=== PATIENT | male | born 1950 | race Caucasian/White ===

== ENCOUNTER → 2016-10-16 | Outpatient (CLI) | payer OTHER ==
--- NOTE | 2016-10-16 10:03 | DIAGNOSTIC IMAGING REPORT ---
ULTRASOUND ABDOMINAL WALL CLINICAL HISTORY: Palpable abnormality. COMPARISON STUDY: Ultrasound of the abdominal wall dated 01/23/2015. FINDINGS: Real-time grayscale sonography of the abdominal wall is performed at the indicated sites of interest. In the right abdomen there is no abnormality identified at site specified. [place] appearing subcutaneous fat is noted. There is focal bulging in the abdominal midline with stress, likely representing diastases of the rectus musculature. No hernia is seen. IMPRESSION: 1. No abdominal wall hernia is identified. 2. There is focal bulging in the abdominal midline, likely representing diastases of the rectus musculature. 3. No mass lesion or abnormality is identified in the right abdomen at the site of interest. Electronically signed by: David Otero M.D. 10/16/2016 10:02 AM Dictated Date/Time: 10/16/2016 9:58 AM
== END | disposition home or self-care (01) ==
LOC: C.ULTR 08:50
PROVIDERS: ATTEND Family Medicine
DX: R19.00 Intra-abdominal and pelvic swelling, mass and lump, unspecified site (principal)

== ENCOUNTER 2022-01-22 11:14 | Observation (INO) ==
[2022-01-22 12:00] LABS: Basophils # (auto) 0.06 K/uL (0-0.2); Eosinophils # (auto) 0.17 K/uL (0-0.50); Eosinophils % (auto) 2.9 %; Hematocrit (blood only) 42.1 % (40.1-51.0); Hemoglobin 14.8 g/dl (14.0-18.0); Immature Granulocytes # (auto) 0.01 K/uL (0.00-0.02); Immature Granulocytes % (auto) 0.2 %; Lymphocytes # (auto) 2.28 K/uL (1.2-3.4); Lymphocytes % (auto) 38.8 %; Mean Corpuscular Hemoglobin 31.7 pg (25.0-34.0); Mean Corpuscular Hgb Conc 35.2 g/dL (32.0-36.0); Mean Corpuscular Volume 90.1 fL (80.0-100.0); Monocytes # (auto) 0.47 K/uL (0.24-0.82); Neutrophils # (auto) 2.89 K/uL (1.4-6.5); Neutrophils % (auto) 49.1 %; Platelet Count 185 K/uL (130-400); RDW Coefficient of Variation 12.5 % (11.5-14.5); RDW Standard Deviation 41.2 fL (36.4-46.3); Red Blood Count 4.67 M/uL (4.63-6.08); White Blood Count 5.88 K/ul (4.8-10.8)
--- NOTE | 2022-01-22 12:02 | Emergency Department Note ---
Impression & Plan TIA (transient ischemic attack), Stenosis of right carotid artery, AF (amaurosis fugax) ED Provider Note NAME: FELECIA VILLARREAL III AGE: 71 SEX: M : 1950 ARRIVES VIA: Walk-In INFORMANT: Patient, ED PROVIDER(S): Sean Payton DO CHIEF COMPLAINT: Visual problems HPI: The patient is a 71-year-old male who presented to the emergency department because of decreased vision in his right eye. The patient states he has been having some chest discomfort and palpitations over the course the last few weeks. He was seen in our facility and had a complete work-up including an echocardiogram. He also had an out patient monitor which showed a significant amount of ectopy. He was started on a beta-simeon. The symptoms have slowly been improving although he still complains of some chest discomfort especially today. He denies having any trauma. He denies having any difficulty breathing. He states that he started noticing decreased vision in his right eye this morning. He states he has had ongoing symptoms of chest discomfort but the visual difficulty only lasted about 30 minutes and was more like a grayness over his entire right vision. He was seen at his eye doctors but no cause could be found peripherally for his visual difficulty. For this reason he was sent to the emergency department for a possible FORMULA CHECKER cause to his findings. The patient himself denies having any history of TIA or stroke. He has no history of heart attack. He denies having any back pain or lower extremity pain or swelling at this time. He states the visual difficulty is completely resolved. ROS: See above HPI for pertinent positives & negatives. A total of 10 systems reviewed and were otherwise negative. PAST MEDICAL HISTORY: See Below PAST SURGICAL HISTORY: See Below FAMILY HISTORY: See Below SOCIAL HISTORY: See Below HOME MEDICATIONS: See Below ALLERGIES: See Below VITALS: See Below PHYSICAL EXAMINATION: GENERAL: Patient is awake alert in no acute distress patient is resting comfor tably and showing no signs of anxiety EYES: The conjunctivae are clear. The right pupil was dilated and minimally reactive consistent with the patient's recent trip to the central sched[place]. Left pupil is midsize and reactive. Extraocular muscles are intact. EARS, NOSE, MOUTH AND THROAT: The nose is without any evidence of any deformity. NECK: The neck is nontender and supple. RESPIRATORY: Normal respiratory effort is noted there is no evidence of wheezing rhonchi or rales CARDIOVASCULAR: Regular rate and rhythm noted there no murmurs rubs or gallops normal S1 normal S2. GASTROINTESTINAL: The abdomen is soft. Abdomen is nontender. MUSCULOSKELETAL/EXTREMITIES: There is no evidence of gross deformity full range of motion is noted in the hips and shoulders. SKIN: There is no obvious evidence of any rash. There are no petechiae, pallor or cyanosis noted. NEUROLOGIC: Patient is awake alert and oriented x3 strength is symmetric patellar reflexes are 2+ bilaterally MEDICAL DECISION MAKING: The patient is a 71-year-old male who presented to the emergency department with neurologic symptoms. The patient had a transient loss of vision in his right eye. He was seen by ophthalmology. No definite cause for his transient loss of vision was noted on their exam. The patient was sent to the emergency department for further neurologic work-up. He had no focal neurologic deficits on my evaluation and his vision he states was significantly improved. I discussed the patient's laboratory and radiographic studies with him. He was found to have a lesion in his right carotid artery which could be the cause of the patient's transient loss of vision. Given the likelihood of possible further TIA or possible stroke I discussed his case with the on-call [facility] hospitalist. They have agreed to evaluate the patient in the emergency department for further management and disposition. Triage Nursing notes reviewed. Prior medical records reviewed Vital Signs: reviewed and remarkable for elevated blood pressure. Differential diagnosis: Cardiac ischemia, aortic dissection, pulmonary embolism, pneumothorax, pneumonia, pericarditis, myocarditis, esophageal rupture, GERD, cholecystitis, pancreatitis, musculoskeletal, as well as other pathologies. ER treatment provided: See below Diagnostics interpreted by me: ECG: EKG was obtained in the emergency department. My interpretation is normal sinus rhythm at 73 bpm. There was no ectopy. Lateral T wave inversions were noted. This was compared to a tracing from October 01, 2018. The T wave abnormalities are significantly improved compared to the earlier tracing. Cardiac Monitoring: An order was placed for continuous cardiac monitoring. The monitor shows a rate of 67 bpm with sinus rhythm. Laboratory studies: As stated above and show below. Imaging studies: See below Consultation(s): I discussed this case with Dr. Do. Past Med/Surg History Medical History Abnormal resting ECG findings Diffuse T wave inversion. Prompted cardiac workup in 2007 -- cath showed normal coronary arteries. GERD (gastroesophageal reflux disease) Hypertension Osteoarthritis Surgical History History of cardiac cath 8 YRS AGO History of colonoscopy History of dental surgery Post insertion History of total shoulder replacement Hx of arthroscopy of right knee Family History Father Pancreatic cancer Social History Smoking Status: Never smoker Second Hand Exposure: No; Hx Alcohol Use: No Hx Substance Use: No Preferred Language: Portuguese Communication Ability: Effective Rate Clerk Required: No Beliefs That Will Affect Care: None Current Living Situation: Spouse Current Living Situation Comment: home with Other Information That Helps Us Care for You: No Feels Safe at Home: Yes Safety Concerns: Feels Safe At This Time Assistive Devices: Glasses Allergies Allergies Allergy/AdvReac Type Severity Reaction Status Date / Time acetaminophen [From Tylenol] Allergy Intermediate Hives Verified 01/22/22 14:19 Home Meds Home Medications Medication Instructions Recorded Confirmed aspirin 81 mg tablet,delayed 81 mg PO DAILY 09/30/18 01/22/22 release (Aspir-) esomeprazole magnesium 20 mg 20 mg PO DAILY 09/30/18 01/22/22 capsule,delayed release (Nexium) hydrocortisone 1 % topical cream 1 applic topical BID PRN Pain 09/30/18 01/22/22 ibuprofen 200 mg capsule (Motrin 400 mg PO Q6H PRN Pain 09/30/18 01/22/22 IB) lisinopril 20 mg tablet 20 mg PO DAILY 09/30/18 01/22/22 metoprolol succinate 50 mg 50 mg PO DAILY 01/22/22 01/22/22 tablet,extended release 24 hr Results & Data (ED) Vital Signs Vital Signs - 24 hr 01/22/22 11:15 01/22/22 11:37 01/22/22 11:37 Temperature 36.4 C L Temperature Source Temporal Artery Scan Pulse Rate 64 Pulse Rate [Apical] 63 Pulse Rhythm Regular Pulse Rhythm [Apical] Regular Pulse Strength Normal Pulse Strength [Apical] Normal Respiratory Rate 20 20 Respiratory Effort / Characteristics Non-Labored Spontaneous Non-Labored Respiratory Depth Normal Normal Respiratory Pattern Regular Regular Blood Pressure 156/87 H Blood Pressure [Right Arm] 144/83 H Blood Pressure Mean 110 Blood Pressure Mean [Right Arm] 103 Blood Pressure Position Sitting Blood Pressure Position [Right Arm] Lying Pulse Oximetry 97 95 Oxygen Delivery Method Room Air Room Air Room Air Sepsis Recent Fever Within 48 Hours No Sepsis New/Unexplained Change in Mental Status N/A Sepsis Action Taken by Nursing No Action Required 01/22/22 12:05 Temperature Temperature Source Pulse Rate Pulse Rate [Apical] 60 Pulse Rhythm Pulse Rhythm [Apical] Regular Pulse Strength Pulse Strength [Apical] Normal Respiratory Rate 20 Respiratory Effort / Characteristics Non-Labored Respiratory Depth Normal Respiratory Pattern Regular Blood Pressure Blood Pressure [Right Arm] Blood Pressure Mean Blood Pressure Mean [Right Arm] Blood Pressure Position Blood Pressure Position [Right Arm] Pulse Oximetry 94 Oxygen Delivery Method Room Air Sepsis Recent Fever Within 48 Hours Sepsis New/Unexplained Change in Mental Status Sepsis Action Taken by [facility] Medications Current Medication List: was personally reviewed by me Laboratory Data Attestation: I reviewed the patient's lab results. Result diagrams: 01/23/22 07:15 01/23/22 07:15 Lab Results 01/22/22 01/22/22 01/22/22 Range/Units 11:25 11:25 11:25 WBC 5.88 (4.8-10.8) K/ul RBC 4.67 (4.63-6.08) M/uL Hgb 14.8 (14.0-18.0) g/dl Hct 42.1 (40.1-51.0) % MCV 90.1 (80.0-100.0) fL MCH 31.7 (25.0-34.0) pg MCHC 35.2 (32.0-36.0) g/dL RDW Std Deviation 41.2 (36.4-46.3) fL RDW Coeff of Sravani 12.5 (11.5-14.5) % Plt Count 185 (130-400) K/uL MPV 9.0 L (9.4-12.4) fL Immature Gran % (Auto) 0.2 % Neut % (Auto) 49.1 % Lymph % (Auto) 38.8 % [place] % (Auto) 8.0 % Eos % (Auto) 2.9 % Baso % (Auto) 1.0 % Neut # (Auto) 2.89 (1.4-6.5) K/uL Lymph # (Auto) 2.28 (1.2-3.4) K/uL [place] # (Auto) 0.47 (0.24-0.82) K/uL Eos # (Auto) 0.17 (0-0.50) K/uL Baso # (Auto) 0.06 (0-0.2) K/uL Immature Gran # (Auto) 0.01 (0.00-0.02) K/uL PT 10.9 (9.0-12.0) Seconds INR 1.0 (0.9-1.1) APTT 25.7 (21.0-31.0) Seconds PTT Ratio 0.9 Sodium 137 (136-145) mmol/L Potassium 4.5 (3.5-5.1) mmol/L Chloride 104 (98-107) mmol/L Carbon Dioxide 29 (21-32) mmol/L Anion Gap 4 (3-11) BUN 19 (6-23) mg/dl Creatinine 1.05 (0.6-1.4) mg/dl Est Cr Clr Drug Dosing 86.9 ml/min Est GFR ( Amer) 82.4 ml/min Est GFR (Non-Af Amer) 71.1 ml/min BUN/Creatinine Ratio 18.1 (10-20) Glucose 112 H (70-99(Fasting)) mg/dl Calcium 9.5 (8.5-10.1) mg/dl Magnesium 2.0 (1.7-2.4) mg/dl Total Bilirubin 0.5 (0.2-1.0) mg/dl AST 17 (13-39) U/L ALT 23 (7-52) U/L Alkaline Phosphatase 100 (34-104) U/L Troponin I High Sens 7.1 (0-20) pg/ml Total Protein 7.1 (6.0-8.3) gm/dl Albumin 4.1 (3.4-5.0) gm/dl Globulin 3.0 (2.5-4.0) gm/dl Albumin/Globulin Ratio 1.4 (0.9-2) Urine Color Urine Appearance (Clear) Urine pH (4.5-7.5) Ur Specific [place] (1.000-1.030) Urine Protein (Negative) Urine Glucose (UA) (Negative) Urine Ketones (Negative) Urine Blood (Negative) Urine Nitrite (Negative) Urine Bilirubin (Negative) Urine Urobilinogen (Negative) Ur Leukocyte Esterase (Negative) SARS-CoV-2, RNA, NAAT (NEGATIVE) 01/22/22 01/22/22 Range/Units 12:18 12:35 WBC (4.8-10.8) K/ul RBC (4.63-6.08) M/uL Hgb (14.0-18.0) g/dl Hct (40.1-51.0) % MCV (80.0-100.0) fL MCH (25.0-34.0) pg MCHC (32.0-36.0) g/dL RDW Std Deviation (36.4-46.3) fL RDW Coeff of Sravani (11.5-14.5) % Plt Count (130-400) K/uL MPV (9.4-12.4) fL Immature Gran % (Auto) % Neut % (Auto) % Lymph % (Auto) % [place] % (Auto) % Eos % (Auto) % Baso % (Auto) % Neut # (Auto) (1.4-6.5) K/uL Lymph # (Auto) (1.2-3.4) K/uL [place] # (Auto) (0.24-0.82) K/uL Eos # (Auto) (0-0.50) K/uL Baso # (Auto) (0-0.2) K/uL Immature Gran # (Auto) (0.00-0.02) K/uL PT (9.0-12.0) Seconds INR (0.9-1.1) APTT (21.0-31.0) Seconds PTT Ratio Sodium (136-145) mmol/L Potassium (3.5-5.1) mmol/L Chloride (98-107) mmol/L Carbon Dioxide (21-32) mmol/L Anion Gap (3-11) BUN (6-23) mg/dl Creatinine (0.6-1.4) mg/dl Est Cr Clr Drug Dosing ml/min Est GFR ( Amer) ml/min Est GFR (Non-Af Amer) ml/min BUN/Creatinine Ratio (10-20) Glucose (70-99(Fasting)) mg/dl Calcium (8.5-10.1) mg/dl Magnesium (1.7-2.4) mg/dl Total Bilirubin (0.2-1.0) mg/dl AST (13-39) U/L ALT (7-52) U/L Alkaline Phosphatase (34-104) U/L Troponin I High Sens (0-20) pg/ml Total Protein (6.0-8.3) gm/dl Albumin (3.4-5.0) gm/dl Globulin (2.5-4.0) gm/dl Albumin/Globulin Ratio (0.9-2) Urine Color Yellow Urine Appearance Clear (Clear) Urine pH 7.5 (4.5-7.5) Ur Specific [place] 1.011 (1.000-1.030) Urine Protein Negative (Negative) Urine Glucose (UA) Negative (Negative) Urine Ketones Negative (Negative) Urine Blood Negative (Negative) Urine Nitrite Negative (Negative) Urine Bilirubin Negative (Negative) Urine Urobilinogen Negative (Negative) Ur Leukocyte Esterase Negative (Negative) SARS-CoV-2, RNA, NAAT NEGATIVE (NEGATIVE) Administered Medications Aspirin (Aspirin 81 Mg Ectab) 81 mg PO DAILY [facility] Stop: 02/22/22 08:59 Last Admin: 01/23/22 08:29 Dose: 81 mg Documented By: [id number] Atorvastatin Calcium (Atorvastatin 40 Mg Tab) 80 mg PO [facility] Stop: 02/21/22 18:14 Last Admin: 01/23/22 08:28 Dose: 80 mg Documented By: [id number] Admin: 01/22/22 19:24 Dose: 80 mg Documented By: LL Clopidogrel Bisulfate (Clopidogrel Bisulfate 75 Mg Tab) [facility] Stop: 02/22/22 08:59 Last Admin: 01/23/22 08:29 Dose: 75 mg Documented By: [id number] Lisinopril (Lisinopril 20 Mg Tab) 20 mg PO DAILY [facility] Stop: 02/22/22 08:59 Last Admin: 01/23/22 08:29 Dose: 20 mg Documented By: [id number] Metoprolol Succinate (Metoprolol Succ 50mg Ext Rel Tab) 50 mg PO DAILY [facility] Stop: 02/22/22 08:59 Last Admin: 01/23/22 08:28 Dose: 50 mg Documented By: [id number] Pantoprazole Sodium (Pantoprazole 40 Mg Tab) 40 mg PO DAILY [facility]; Protocol Stop: 02/22/22 08:59 Last Admin: 01/23/22 08:29 Dose: 40 mg Documented By: [id number] Discontinued Medications Aspirin (Aspirin 81 Mg Chew) 324 mg PO NOW STA Stop: 01/22/22 17:04 Last Admin: 01/22/22 18:28 Dose: 324 mg Documented By: ANIRUDH Clopidogrel Bisulfate (Clopidogrel Bisulfate 300 Mg Tab) 300 mg PO NOW STA Stop: 01/22/22 17:53 Last Admin: 01/22/22 18:29 Dose: 300 mg Documented By: ANIRUDH Ioversol (Optiray 320 500ml) 120 ml IV ONCE ONE Stop: 01/22/22 13:00 Last Admin: 01/22/22 13:00 Dose: 120 ml Documented By: TUTU Lorazepam (Lorazepam 2 Mg/2 Ml Syr) 2 mg IV ONCE ONE; Protocol Stop: 01/22/22 14:55 Last Admin: 01/22/22 16:42 Dose: 2 mg Documented By: [place] Imaging Data Radiologist's Impression: Chest CTA 01/22/22 11:46 CT ANGIOGRAPHY OF THE CHEST DISSECTION PROTOCOL CLINICAL HISTORY: Chest pain with neurologic signs and symptoms. COMPARISON STUDY: Chest radiograph January 25, 2009. TECHNIQUE: Before and following the IV administration of 120 mL of Optiray, helical axial images of the chest were obtained. Maximal intensity projections and sagittal and coronal reformats were viewed on an independent 3D workstation. IV contrast was administered without complication. Automated exposure control was utilized for the study. A dose lowering technique was utilized adhering to the principles of ALARA. CT DOSE: 2413.51 mGy.cm FINDINGS: The caliber of the thoracic aorta is normal. There is no thoracic aortic dissection. Mild cardiomegaly is noted. There is moderate coronary artery calcification. No central pulmonary emboli are identified. No pneumothorax or pleural effusion is present. There is no thoracic lymphadenopathy. A few small pulmonary nodules measure up to 5 mm. The largest is within the left lower lobe on image 179 of 306. There is no consolidation. No acute fractures within the bony thorax are identified. Hepatic steatosis is noted. A left adrenal nodule is likely benign. Heterogeneous enhancement of the spleen is probably related to the phase of enhancement. There is a splenule. IMPRESSION: 1. No thoracic aortic dissection. 2. No acute intrathoracic findings. 3. Mild cardiomegaly and moderate coronary artery calcification. 4. A few small low suspicion pulmonary nodules. Follow-up chest CT in 6 months to ensure stability is recommended. ACT 112: Negative or not required by law. Electronically signed by: Darryl Shipley M.D. 01/22/2022 1:[address] 01/22/22 11:46 CT head/brain wo con, CT angio head w con, CT angio neck with con CLINICAL HISTORY: 71 years-old Male with Stroke Like Symptoms. Acute strokelike symptoms TECHNIQUE: Multiple axial CT images of the head were obtained without contrast. CTA head and neck was also obtained following the intravenous administration of 120 mL Optiray 320. 3-D coronal and sagittal MIPS were obtained from the axial data set and were symmetric for review. All measurements were obtained according to NASCET criteria. A dose lowering technique was utilized adhering to the principles of ALARA. COMPARISON: None FINDINGS: CT HEAD: No acute intracranial hemorrhage, midline shift, intracranial mass, hydrocephalus, territorial ischemia or abnormal extra-axial collection. Involutional changes. Mild white matter hypodensities suggestive of chronic microvascular ischemic disease. The calvarium is intact. The paranasal sinuses, mastoid air cells, and middle e ar cavities are clear. CTA: Atherosclerosis of the thoracic aorta. Patency of the innominate and imaged subclavian arteries. The common carotid arteries are widely patent. At herosclerotic plaque of the right greater than left carotid bulbs. There is less than 50% stenosis of the left ICA. There is high-grade (greater than 90%) stenosis with near occlusion of the proximal cervical segment right ICA on image 271 secondary to atheromatous plaque. Calcified plaque of the cavernous, clinoid and supraclinoid segments. Approximately 50% stenosis about the supraclinoid right ICA on image 124. The anterior and middle cerebral arteries are widely patent. Codominant and widely patent vertebral arteries. The basilar and posterior cerebral arteries appear patent. Cerebral venous sinuses are also patent. There is no abnormal intracranial enhancement identified. Lung apices are clear. Unremarkable soft tissues. Degenerative changes of the cervical spine. IMPRESSION: 1. No acute intracranial abnormality identified. 2. High-grade stenosis of the proximal cervical segment right ICA secondary to a theromatous plaque. 3. Otherwise unremarkable CTA of the head and neck without additional high-grade stenosis. No aneurysm, dissection or arterial occlusion identified. ACT 112: Negative or not required by law. The above report was generated using voice recognition software. It may contain grammatical, syntax or spelling errors. Electronically signed by: García Campbell M.D. 01/22/2022 1:25 PM Head CTA 01/22/22 11:46 CT head/brain wo con, CT angio head w con, CT angio neck with con CLINICAL HISTORY: 71 years-old Male with Stroke Like Symptoms. Acute strokelike symptoms TECHNIQUE: Multiple axial CT images of the head were obtained without contrast. CTA head and neck was also obtained following the intravenous administration of 120 mL Optiray 320. 3-D coronal and sagittal MIPS were obtained from the axial data set and were symmetric for review. All measurements were obtained according to NASCET criteria. A dose lowering technique was utilized adhering to the principles of ALARA. COMPARISON: None FINDINGS: CT HEAD: No acute intracranial hemorrhage, midline shift, intracranial mass, hydrocephalus, territorial ischemia or abnormal extra-axial collection. Involutional changes. Mild white matter hypodensities suggestive of chronic microvascular ischemic disease. The calvarium is intact. The paranasal sinuses, mastoid air cells, and middle ear cavities are clear. CTA: Atherosclerosis of the thoracic aorta. Patency of the innominate and imaged subclavian arteries. The common carotid arteries are widely patent. Atherosclerotic plaque of the right greater than left carotid bulbs. There is less than 50% stenosis of the left ICA. There is high-grade (greater than 90%) stenosis with near occlusion of the proximal cervical segment right ICA on image 271 secondary to atheromatous plaque. Calcified plaque of the cavernous, clinoid and supraclinoid segments. Approximately 50% stenosis about the supraclinoid right ICA on image 124. The anterior and middle cerebral arteries are widely p atent. Codominant and widely patent vertebral arteries. The basilar and posterior cerebral arteries appear patent. Cerebral venous sinuses are also patent. There is no abnormal intracranial enhancement identified. Lung apices are clear. Unremarkable soft tissues. Degenerative changes of the cervical spine. IMPRESSION: 1. No acute intracranial abnormality identified. 2. High-grade stenosis of the proximal cervical segment right ICA secondary to atheromatous plaque. 3. Otherwise unremarkable CTA of the head and neck without additional high-grade stenosis. No aneurysm, dissection or arterial occlusion identified. ACT 112: Negative or not required by law. The above report was generated using voice recognition software. It may contain grammatical, syntax or spelling errors. Electronically signed by: García Campbell M.D. 01/22/2022 1:25 PM Neck CTA 01/22/22 11:46 CT head/brain wo con, CT angio head w con, CT angio neck with con CLINICAL HISTORY: 71 years-old Male with Stroke Like Symptoms. Acute strokelike symptoms TECHNIQUE: Multiple axial CT images of the head were obtained without contrast. CTA head and neck was also obtained following the intravenous administration of 120 mL Optiray 320. 3-D coronal and sagittal MIPS were obtained from the axial data set and were symmetric for review. All measurements were obtained according to NASCET criteria. A dose lowering technique was utilized adhering to the principles of ALARA. COMPARISON: None FINDINGS: CT HEAD: No acute intracranial hemorrhage, midline shift, intracranial mass, hydrocephalus, territorial ischemia or abnormal extra-axial collection. Involutional changes. Mild white matter hypodensities suggestive of chronic microvascular ischemic disease. The calvarium is intact. The paranasal sinuses, mastoid air cells, and middle ear cavities are clear. CTA: Atherosclerosis of the thoracic aorta. Patency of the innominate and imaged subclavian arteries. The common carotid arteries are widely patent. Atherosclerotic plaque of the right greater than left carotid bulbs. There is less than 50% stenosis of the left ICA. There is high-grade (greater than 90%) stenosis with near occlusion of the proximal cervical segment right ICA on image 271 secondary to atheromatous plaque. Calcified plaque of the cavernous, clinoid and supraclinoid segments. Approximately 50% stenosis about the supraclinoid right ICA on image 124. The anterior and middle cerebral arteries are widely patent. Codominant and widely patent vertebral arteries. The basilar and posterior cerebral arteries appear patent. Cerebral venous sinuses are also patent. There is no abnormal intracranial enhancement identified. Lung apices are clear. Unremarkable soft tissues. Degenerative changes of the cervical spine. IMPRESSION: 1. No acute intracranial abnormality identified. 2. High-grade stenosis of the proximal cervical segment right ICA secondary to atheromatous plaque. 3. Otherwise unremarkable CTA of the head and neck without additional high-grade stenosis. No aneurysm, dissection or arterial occlusion identified. ACT 112: Negative or not required by law. The above report was generated using voice recognition software. It may contain grammatical, syntax or spelling errors. Electronically signed by: García Campbell M.D. 01/22/2022 1:25 PM Discharge Plan Visit Data Chief Complaint: Chest Pain Stated Complaint: UNABLE TO SEE OUT OF ONE SIDE ED Provider: Sean Payton Discharge Problem: TIA (transient ischemic attack), Stenosis of right carotid artery, AF (amaurosis fugax) Patient Disposition: Admitted As Inpatient Discharge Instructions Interventions: ED Discharge Assessment Last Done: 01/22/22 17:25
[2022-01-22 12:18] LABS: Partial Thromboplastin Ratio 0.9; Partial Thromboplastin Time 25.7 Seconds (21.0-31.0); Prothrombin Time 10.9 Seconds (9.0-12.0)
[2022-01-22 12:22] LABS: Albumin Globulin Ratio 1.4 (0.9-2); Albumin Level 4.1 gm/dl (3.4-5.0); BUN Creatinine Ratio 18.1 (10-20); Bilirubin,Total 0.5 mg/dl (0.2-1.0); Calcium 9.5 mg/dl (8.5-10.1); Creatinine Clr Calc Pharmacy 86.9 ml/min; Est GFR (African American) 82.4 ml/min; Est GFR (Non-African American) 71.1 ml/min; Potassium 4.5 mmol/L (3.5-5.1); Total Protein 7.1 gm/dl (6.0-8.3)
[2022-01-22 12:51] LABS: Troponin I High Sensitivity 7.1 pg/ml (0-20)
[2022-01-22 12:54] LABS: Appearance Urine Clear (Clear); Bilirubin Urine Negative (Negative); Blood Urine Negative (Negative); Color Urine Yellow; Glucose Urine UA Negative (Negative); Ketones Urine Negative (Negative); Leukocyte Esterase Urine Negative (Negative); Nitrite Urine Negative (Negative); Protein Urine Negative (Negative); Specific Gravity Urine 1.011 (1.000-1.030); Urobilinogen Urine Negative (Negative); pH Urine 7.5 (4.5-7.5)
[2022-01-22] MEDS ORDERED: OPTIRAY 320 500ml IV ONE (12:59)
--- NOTE | 2022-01-22 13:26 | CT Scan Report ---
CT head/brain wo con, CT angio head w con, CT angio neck with con CLINICAL HISTORY: 71 years-old Male with Stroke Like Symptoms. Acute strokelike symptoms TECHNIQUE: Multiple axial CT images of the head were obtained without contrast. CTA head and neck was also obtained following the intravenous administration of 120 mL Optiray 320. 3-D coronal and sagitt al MIPS were obtained from the axial data set and were symmetric for review. All measurements were ob tained according to NASCET criteria. A dose lowering technique was utilized adhering to the principle s of ALARA. COMPARISON: None FINDINGS: CT HEAD: No acute intracranial hemorrhage, midline shift, intracranial mass, hydrocephalus, territorial ischem ia or abnormal extra-axial collection. Involutional changes. Mild white matter hypodensities suggesti ve of chronic microvascular ischemic disease. The calvarium is intact. The paranasal sinuses, mastoid air cells, and middle ear cavities are clear . CTA: Atherosclerosis of the thoracic aorta. Patency of the innominate and imaged subclavian arteries. The common carotid arteries are widely patent. Atherosclerotic plaque of the right greater than left carotid bulbs. There is less than 50% stenosis of the left ICA. There is high-grade (greater than 90 %) stenosis with near occlusion of the proximal cervical segment right ICA on image 271 secondary to atheromatous plaque. Calcified plaque of the cavernous, clinoid and supraclinoid segments. Approximat alyssa 50% stenosis about the supraclinoid right ICA on image 124. The anterior and middle cerebral fran genaro are widely patent. Codominant and widely patent vertebral arteries. The basilar and posterior ce rebral arteries appear patent. Cerebral venous sinuses are also patent. There is no abnormal intracra nial enhancement identified. Lung apices are clear. Unremarkable soft tissues. Degenerative changes of the cervical spine. IMPRESSION: 1. No acute intracranial abnormality identified. 2. High-grade stenosis of the proximal cervical segment right ICA secondary to atheromatous plaque. 3. Otherwise unremarkable CTA of the head and neck without additional high-grade stenosis. No aneurys m, dissection or arterial occlusion identified. ACT 112: Negative or not required by law. The above report was generated using voice recognition software. It may contain grammatical, syntax o r spelling errors. Electronically signed by: García Campbell M.D. 01/22/2022 1:25 PM
--- NOTE | 2022-01-22 13:26 | CT Scan Report ---
CT ANGIOGRAPHY OF THE CHEST DISSECTION PROTOCOL CLINICAL HISTORY: Chest pain with neurologic signs and symptoms. COMPARISON STUDY: Chest radiograph January 25, 2009. TECHNIQUE: Before and following the IV administration of 120 mL of Optiray, helical axial images of t he chest were obtained. Maximal intensity projections and sagittal and coronal reformats were viewed on an independent 3D workstation. IV contrast was administered without complication. Automated exp osure control was utilized for the study. A dose lowering technique was utilized adhering to the caryn Monae. CT DOSE: 2413.51 mGy.cm FINDINGS: The caliber of the thoracic aorta is normal. There is no thoracic aortic dissection. Mild cardiomegaly is noted. There is moderate coronary artery calcification. No central pulmonary emboli a re identified. No pneumothorax or pleural effusion is present. There is no thoracic lymphadenopathy. A few small pulmonary nodules measure up to 5 mm. The largest is within the left lower lobe on image 179 of 306. There is no consolidation. No acute fractures within the bony thorax are identified. Hepa tic steatosis is noted. A left adrenal nodule is likely benign. Heterogeneous enhancement of the sple en is probably related to the phase of enhancement. There is a splenule. IMPRESSION: 1. No thoracic aortic dissection. 2. No acute intrathoracic findings. 3. Mild cardiomegaly and moderate coronary artery calcification. 4. A few small low suspicion pulmonary nodules. Follow-up chest CT in 6 months to ensure stability is recommended. ACT 112: Negative or not required by law. Electronically signed by: Darrly Shipley M.D. 01/22/2022 1:25 PM
--- NOTE | 2022-01-22 14:10 | Electrocardiogram Report ---
Test Reason : Blood Pressure : / mmHG Vent. Rate : 073 BPM Atrial Rate : 073 BPM P-R Int : 168 ms QRS Dur : 082 ms QT Int : 372 ms P-R-T Axes : 047 008 099 degrees QTc Int : 409 ms Normal sinus rhythm T wave abnormality, consider lateral ischemia Abnormal ECG When compared with ECG of 01-OCT-2018 14:20, Nonspecific T wave abnormality has replaced inverted T waves in Inferior leads T wave inversion less evident in Anterior leads QT has shortened Confirmed by Long Padilla ([id number]) on 01/22/2022 2:10:24 PM Referred By: REFERRED SELF Confirmed By:Melvin Padilla
--- NOTE | 2022-01-22 14:30 | History & Physical Report ---
Date of Service January 22, 2022 Assessment & Plan (1) TIA (transient ischemic attack): Plan: -Admit to med/tele -Patient is currently afebrile, hemodynamically stable, and stable on RA -Patient's symptoms appear to be due to his severely stenosed right ICA, MRI now showing progression with signs consistent with an acute dissection. -Called and spoke to Vascular Surgery, appreciate their help, confirmed with the patient that his vision is back to baseline, Vascular is recommending dual antiplatelet therapy with aspirin and plavix. They would want to be updated if his vision worsens at all in case of need for stent placement. -Called [facility] back as well since the patient was a stroke alert on arrival to the ED. They agree with Dual antiplatelet therapy to start, if concern for progression of the dissection they recommended switching to a heparin drip. They also encouraged us to call back for concerns of worsening clinical status in case he needs to be transferred. -Already gave patient 324 mg Aspirin earlier, will give 300 mg Plavix now, will continue tomorrow with 81 mg aspirin and 75 mg plavix daily, vascular consult already placed -No signs of acute infarct or hemorrhage on CT or brain MRI -Will continue to monitor for changing neuro symptoms with q4h neuro checks -Will make NPO at midnight in case of possible procedure with Vascular tomorrow -Will start patient on high dose statin tonight -Am CBC and BMP (2) Stenosis of right carotid artery: Plan: -See TIA (3) Atrial ectopy: Plan: -Continue metoprolol (4) Hypertension: Plan: -Continue lisinopril (5) GERD (gastroesophageal reflux disease): Plan: -Continue Nexium Plan The patient was discussed with Dr. Do at the time of the admission History of Present Illness Chief Complaint: Right eye vision changes Primary Care Provider: Bentamara Robles Chaim is a 71 year old male with a PMH significant for Hypertension, hyperlipidemia, GERD, and obesity who presented to the [facility] ED on 01/22/22 with a chief complaint of vision changes in his right eye. Per the ED staff and chart review, the patient has been having intermittent chest pain over the past few weeks. He was apparently seen at our facility for this complaint but there is no documentation in the chart. Per the ED note, the patient had a complete workup in the ED and was discharged on holter monitor which reportedly showed frequent ectopy. For this, he was recently started on metoprolol which has caused some improvement in his chest discomfort. This morning, he started experiencing blurry vision in his right eye, because of this he was seen by his Bobbin Stripper. A completely eye exam was performed and was found to be normal, they recommended coming to the ED for further evaluation for possible stroke/TIA. In the ED the patient was found to be afebrile, hemodynamically stable, and stable on RA. Labs were remarkable for a WBC WNL, CMP WNL, high sensitivity troponin of 7.1, clean UA, and covid negative. CT of the head and CTA of the head and neck showed high grade stenosis of the proximal cervical segment of the right ICA, otherwise no acute findings were noted. At the time of the exam the patient was resting comfortably in bed in no acute distress. History was obtained from the patient and his sitting bedside. They confirmed that his chest pain and heart palpitations have significantly improved after starting the metoprolol. He states that he woke up this morning in his normal state of health. He was sitting at his kitchen table when he suddenly had vision changes in his right eye. He states that his vision turned soto in his right eye and he also saw some flashes of light, this lasted for approximately 15 minutes then resolved. At the current time his vision is essentially back to baseline, but his right pupil is still dilated from his eye exam this morning. He denies recent fevers, chills, changes in taste, hearing, and smell, chest pain, SOB, abdominal pain, nausea, vomiting, diarrhea, dysuria, hematuria, and recent falls. The vision change in his right eye occurred one other time while [place] approximately one year ago. Recently he has noticed that he has been getting headaches more frequently that feel as though his head is pounding. He denies any recent tick bites or rashes. He does not believe that he has been started on a statin previously for high cholesterol. I spoke to he and his regarding code status, he would like to be a Full Code. Allergies Allergy/AdvReac Type Severity Reaction Status Date / Time acetaminophen [From Tylenol] Allergy Intermediate Hives Verified 01/22/22 14:19 Home Medications Medication Instructions Recorded Confirmed Type hydrocortisone 1 % topical cream 1 applic topical BID PRN Pain 09/30/18 01/22/22 History ibuprofen 200 mg capsule (Motrin 400 mg PO Q6H PRN Pain 09/30/18 01/22/22 History IB) lisinopril 20 mg tablet 20 mg PO DAILY 09/30/18 01/22/22 History metoprolol succinate 50 mg 50 mg PO DAILY 01/22/22 01/22/22 History tablet,extended release 24 hr aspirin 81 mg tablet,delayed 81 mg PO DAILY 30 days #30 tabs 01/23/22 Rx release atorvastatin 40 mg tablet 80 mg PO QAM 30 days #60 tabs 01/23/22 Rx clopidogrel 75 mg tablet 75 mg PO QAM 30 days #30 tabs 01/23/22 Rx pantoprazole 40 mg tablet,delayed 40 mg PO DAILY 30 days #30 tabs 01/23/22 Rx release Past Med/Surg History Medical History Abnormal resting ECG findings Diffuse T wave inversion. Prompted cardiac workup in 2007 -- cath showed normal coronary arteries. GERD (gastroesophageal reflux disease) Hypertension Osteoarthritis Surgical History History of cardiac cath 8 YRS AGO History of colonoscopy History of dental surgery Post insertion History of total shoulder replacement Hx of arthroscopy of right knee Family History Father Pancreatic cancer Social History Smoking Status: Never smoker Second Hand Exposure: No; Hx Alcohol Use: No Hx Substance Use: No Preferred Language: Spanish Communication Ability: Effective Mechanic Assistant Required: No Beliefs That Will Affect Care: None Current Living Situation: Spouse Current Living Situation Comment: home with Feels Safe at Home: Yes Assistive Devices: Glasses Review of Systems Review of Systems: Denies current fever, chills, headache, changes in hearing, taste, and smell, chest pain, SOB, cough, abdominal pain, nausea, vomiting, diarrhea, hematemesis, melena, dysuria, hematuria, and recent falls. All systems have been reviewed and are otherwise negative. Physical Exam Physical Exam: Physical Exam: General: In no acute distress, stated age, well-nourished, good hygiene HEENT: Normocephalic, atraumatic, no scleral icterus, pupils around round and reactive to light, right pupil is currently dilated from eye exam earlier today, bruit noted over the right carotid artery, moist mucus membranes, trachea midline, no thyromegaly Chest/Pulm: No respiratory distress, symmetrical chest expansion, clear breath sounds throughout Cardiac: RRR, no murmurs noted Abdomen: Negative for ascites and bruising, normoactive bowel sounds, soft, non-tender to palpation throughout Musculoskeletal: Symmetrical and without signs of acute trauma, upper and lower extremities with full ROM, no atrophy, spasticity, or flaccidity Extremities: Radial, dorsalis pedis, and posterior tibial pulses are intact and symmetrical, no edema noted in the BL LE's Skin: Warm, dry, no rashes , lesions, or scars noted Neuro: Alert and oriented to person, place, month, year, and president, no focal defects besides his right pupil dilation, CN II-XII tested and intact, finger to nose test negative, no tremors noted Psych: No acute distress, calm and cooperative during the exam Results & Data Results & Data ([facility]) Vital Signs (Past 12 Hours) Vital Signs Temp Pulse Pulse Resp BP BP Pulse Ox 01/22/22 12:05 60 20 94 01/22/22 11:37 01/22/22 11:37 63 20 144/83 H 95 01/22/22 11:15 36.4 C L 64 20 156/87 H 97 O2 Del Method 01/22/22 12:05 Room Air 01/22/22 11:37 Room Air 01/22/22 11:37 Room Air 01/22/22 11:15 Room Air Laboratory Results Abnormal lab results 01/22/22 01/22/22 Range/Units 11:25 11:25 MPV 9.0 L (9.4-12.4) fL Glucose 112 H (70-99(Fasting)) mg/dl Diagnostic Findings Chest CTA 01/22/22 11:46 CT ANGIOGRAPHY OF THE CHEST DISSECTION PROTOCOL CLINICAL HISTORY: Chest pain with neurologic signs and symptoms. COMPARISON STUDY: Chest radiograph January 25, 2009. TECHNIQUE: Before and following the IV administration of 120 mL of Optiray, helical axial images of the chest were obtained. Maximal intensity projections and sagittal and coronal reformats were viewed on an independent 3D workstation. IV contrast was administered without complication. Automated exposure control was utilized for the study. A dose lowering technique was utilized adhering to the principles of ALARA. CT DOSE: 2413.51 mGy.cm FINDINGS: The caliber of the thoracic aorta is normal. There is no thoracic ao rtic dissection. Mild cardiomegaly is noted. There is moderate coronary artery calcification. No central pulmonary emboli are identified. No pneumothorax or pleural effusion is present. There is no thoracic lymphadenopathy. A few small pulmonary nodules measure up to 5 mm. The largest is within the left lower lobe on image 179 of 306. There is no consolidation. No acute fractures within the bony thorax are identified. Hepatic steatosis is noted. A left adrenal nodule is likely benign. Heterogeneous enhancement of the spleen is probably related to the phase of enhancement. There is a splenule. IMPRESSION: 1. No thoracic aortic dissection. 2. No acute intrathoracic findings. 3. Mild cardiomegaly and moderate coronary artery calcification. 4. A few small low suspicion pulmonary nodules. Follow-up chest CT in 6 months to ensure stability is recommended. ACT 112: Negative or not required by law. Electronically signed by: Darryl Shipley M.D. 01/22/2022 1:[address] 01/22/22 11:46 CT head/brain wo con, CT angio head w con, CT angio neck with con CLINICAL HISTORY: 71 years-old Male with Stroke Like Symptoms. Acute strokelike symptoms TECHNIQUE: Multiple axial CT images of the head were obtained without contrast. CTA head and neck was also obtained following the intravenous administration of 120 mL Optiray 320. 3-D coronal and sagittal MIPS were obtained from the axial data set and were symmetric for review. All measurements were obtained according to NASCET criteria. A dose lowering technique was utilized adhering to the principles of ALARA. COMPARISON: None FINDINGS: CT HEAD: No acute intracranial hemorrhage, midline shift, intracranial mass, hydrocephalus, territorial ischemia or abnormal extra-axial collection. Involutional changes. Mild white matter hypodensities suggestive of chronic microvascular ischemic disease. The calvarium is intact. The paranasal sinuses, mastoid air cells, and middle ear cavities are clear. CTA: Atherosclerosis of the thoracic aorta. Patency of the innominate and imaged subclavian arteries. The common carotid arteries are widely patent. Atherosclerotic plaque of the right greater than left carotid bulbs. There is less than 50% stenosis of the left ICA. There is high-grade (greater than 90%) stenosis with near occlusion of the proximal cervical segment right ICA on image 271 secondary to atheromatous plaque. Calcified plaque of the cavernous, clinoid and supraclinoid segments. Approximately 50% stenosis about the supraclinoid right ICA on image 124. The anterior and middle cerebral arteries are widely patent. Codominant and widely patent vertebral arteries. The basilar and posterior cerebral arteries appear patent. Cerebral venous sinuses are also p atent. There is no abnormal intracranial enhancement identified. Lung apices are clear. Unremarkable soft tissues. Degenerative changes of the cervical spine. IMPRESSION: 1. No acute intracranial abnormality identified. 2. High-grade stenosis of the proximal cervical segment right ICA secondary to atheromatous plaque. 3. Otherwise unremarkable CTA of the head and neck without additional high-grade stenosis. No aneurysm, dissection or arterial occlusion identified. ACT 112: Negative or not required by law. The above report was generated using voice recognition software. It may contain grammatical, syntax or spelling errors. Electronically signed by: García Campbell M.D. 01/22/2022 1:25 PM Head CTA 01/22/22 11:46 CT head/brain wo con, CT angio head w con, CT angio neck with con CLINICAL HISTORY: 71 years-old Male with Stroke Like Symptoms. Acute strokelike symptoms TECHNIQUE: Multiple axial CT images of the head were obtained without contrast. CTA head and neck was also obtained following the intravenous administration of 120 mL Optiray 320. 3-D coronal and sagittal MIPS were obtained from the axial data set and were symmetric for review. All measurements were obtained according to NASCET criteria. A dose lowering technique was utilized adhering to the principles of ALARA. COMPARISON: None FINDINGS: CT HEAD: No acute intracranial hemorrhage, midline shift, intracranial mass, hydrocephalus, territorial ischemia or abnormal extra-axial collection. Involutional changes. Mild white matter hypodensities suggestive of chronic microvascular ischemic disease. The calvarium is intact. The paranasal sinuses, mastoid air cells, and middle ear cavities are clear. CTA: Atherosclerosis of the thoracic aorta. Patency of the innominate and imaged subclavian arteries. The common carotid arteries are widely patent. Atherosclerotic plaque of the right greater than left carotid bulbs. There is less than 50% stenosis of the left ICA. There is high-grade (greater than 90%) stenosis with near occlusion of the proximal cervical segment right ICA on image 271 secondary to atheromatous plaque. Calcified plaque of the cavernous, clinoid and supraclinoid segments. Approximately 50% stenosis about the supraclinoid right ICA on image 124. The anterior and middle cerebral arteries are widely patent. Codominant and widely patent vertebral arteries. The basilar and posterior cerebral arteries appear patent. Cerebral venous sinuses are also patent. There is no abnormal intracranial enhancement identified. Lung apices are clear. Unremarkable soft tissues. Degenerative changes of the cervical spine. IMPRESSION: 1. No acute intracranial abnormality identified. 2. High-grade stenosis of the proximal cervical segment right ICA secondary to atheromatous plaque. 3. Otherwise unremarkable CTA of the head and neck without additional high-grade stenosis. No aneurysm, dissection or arterial occlusion identified. ACT 112: Negative or not required by law. The above report was generated using voice recognition software. It may contain grammatical, syntax or spelling errors. Electronically signed by: García Campbell M.D. 01/22/2022 1:25 PM Neck CTA 01/22/22 11:46 CT head/brain wo con, CT angio head w con, CT angio neck with con CLINICAL HISTORY: 71 years-old Male with Stroke Like Symptoms. Acute strokelike symptoms TECHNIQUE: Multiple axial CT images of the head were obtained without contrast. CTA head and neck was also obtained following the intravenous administration of 120 mL Optiray 320. 3-D coronal and sagittal MIPS were obtained from the axial data set and were symmetric for review. All measurements were obtained according to NASCET criteria. A dose lowering technique was utilized adhering to the principles of ALARA. COMPARISON: None FINDINGS: CT HEAD: No acute intracranial hemorrhage, midline shift, intracranial mass, hydrocephalus, territorial ischemia or abnormal extra-axial collection. Involutional changes. Mild white matter hypodensities suggestive of chronic microvascular ischemic disease. The calvarium is intact. The paranasal sinuses, mastoid air cells, and middle ear cavities are clear. CTA: Atherosclerosis of the thoracic aorta. Patency of the innominate and imaged subclavian arteries. The common carotid arteries are widely patent. Atherosclerotic plaque of the right greater than left carotid bulbs. There is less than 50% stenosis of the left ICA. There is high-grade (greater than 90%) stenosis with near occlusion of the proximal cervical segment right ICA on image 271 secondary to atheromatous plaque. Calcified plaque of the cavernous, clinoid and supraclinoid segments. Approximately 50% stenosis about the supraclinoid right ICA on image 124. The anterior and middle cerebral arteries are widely patent. Codominant and widely patent vertebral arteries. The basilar and posterior cerebral arteries appear patent. Cerebral venous sinuses are also patent. There is no abnormal intracranial enhancement identified. Lung apices are clear. Unremarkable soft tissues. Degenerative changes of the cervical spine. IMPRESSION: 1. No acute intracranial abnormality identified. 2. High-grade stenosis of the proximal cervical segment right ICA secondary to atheromatous plaque. 3. Otherwise unremarkable CTA of the head and neck without additional high-grade stenosis. No aneurysm, dissection or arterial occlusion identified. ACT 112: Negative or not required by law. The above report was generated using voice recognition software. It may contain grammatical, syntax or spelling errors. Electronically signed by: García Campbell M.D. 01/22/2022 1:25 PM ECG Additional Comments: Normal sinus rhythm T wave abnormality, consider lateral ischemia Abnormal ECG When compared with ECG of 01-OCT-2018 14:20, Nonspecific T wave abnormality has replaced inverted T waves in Inferior leads T wave inversion less evident in Anterior leads QT has shortened Confirmed by Long Padilla ([id number]) on 01/22/2022 2:10:24 PM Code Status & VTE Plan Code Status Full code VTE Prophylaxis Plan VTE Prophylaxis will be ordered: Yes Supervising Physician Co-Signing Physician Notes I personally saw and examined the patient. I verified all hidalgo points and agree with Og Hernandez PA-C with the following exceptions and/or additions: 71 year old male presents with acute onset vision loss for 15 minutes. Seen by steam locomotive firer/fireman earlier today and recommended going to the ER to assess for stroke. MRI brain concerning for carotid artery dissection. O/E right vision dilatation from drops earlier today, EOMI intact, normal speech e xam, no facial droop, no focal extremity weakness or change in sensation A/P TIA secondary to right carotid artery dissection on MRI - Discussed with neurology and vascular surgery as above. Recommending dual antiplatelets rather than anticoagulation. PG Care Time/CCT Total # of Minutes Spent Total Time Spent with Patient: Total time spent is greater than 50% in coordination of care (as documented) at patient's floor/unit and/or counseling patient: Coding Level of Care Code Established Pt INT OBSERVATION CARE 70M LVL 3 Patient Type Established Medical Decision Making High Complexity Diagnoses TIA (transient ischemic attack) G45.9 Stenosis of right carotid artery I65.21 Atrial ectopy I49.1 Hypertension I10 GERD (gastroesophageal reflux disease) K21.9
[2022-01-22] MEDS ORDERED: LORazepam 1 MG/1 ML SYR IV ONE (14:54)
[2022-01-22] MEDS ORDERED: ASPIRIN 81 MG CHEW PO STA (17:03)
--- NOTE | 2022-01-22 17:36 | Magnetic Resonance Report ---
Brain MRI WITHOUT CONTRAST HISTORY: Right vision loss. Stroke workup. TECHNIQUE: Multiplanar multisequence MRI of the brain was performed without the use of contrast. COMPARISON STUDY: Head and neck CTA 01/22/2022. FINDINGS: No areas of restricted diffusion to suggest an acute infarction. The midline structures are intact. The ventricles and sulci demonstrate mild age-related involutional changes. Small retention cyst within the left maxillary sinus. The orbits appear unremarkable. There is mild motion artifact. Mild periventricular white matter T2 hyperintensity is nonspecific but favors microvascular ischemic changes given the patient's age. There is no mass, hematoma, midline shift. Loss of the normal flow-v oid throughout the visualized right intracranial internal carotid artery resulting in moderate to sev ere stenosis. This is consistent with an acute dissection. This has progressed compared to the same d ay head CTA. IMPRESSION: 1. Loss of the normal flow-void throughout the visualized right intracranial internal carotid artery resulting in moderate to severe stenosis. This is consistent with an acute dissection. This has progr essed compared to the same day head CTA. 2. No acute infarct or intracranial hemorrhage. 3. This report was called/faxed to the referring physician following dictation. ACT 112: Negative or not required by law. Electronically signed by: Ferny Ureña M.D. 01/22/2022 5:34 PM
[2022-01-22] MEDS ORDERED: CLOPIDOGREL BISULFATE 300 MG TAB PO STA (17:52)
[2022-01-22] MEDS ORDERED: ACETAMINOPHEN 325 MG TAB PO PRN (17:53)
[2022-01-22] MEDS ORDERED: PHARMACIST DISCHARGE MED REC CONSULT PRN (17:53)
[2022-01-22] MEDS: ATORVASTATIN 40 MG TAB PO SCH (19:24)
--- NOTE | 2022-01-23 06:58 | Hospitalist Progress Note ---
Date of Service January 23, 2022 Assessment & Plan Admission and Anticipated Discharge Date Admission Date: January 22, 2022 Results & Data Results & Data ([facility]) Vital Signs (Past 12 Hours) Vital Signs Temp Pulse Pulse Resp BP Pulse Ox O2 Del Method 01/23/22 02:50 36.9 C 65 18 122/75 97 Room Air 01/22/22 23:28 63 01/22/22 23:17 107/61 01/22/22 23:13 36.5 C 67 18 96/50 L 95 Room Air 01/22/22 19:42 36.5 C 76 18 138/78 97 Room Air
[2022-01-23 07:51] LABS: Hematocrit (blood only) 41.1 % (40.1-51.0); Hemoglobin 14.4 g/dl (14.0-18.0); Mean Corpuscular Hemoglobin 31.5 pg (25.0-34.0); Mean Corpuscular Volume 89.9 fL (80.0-100.0); Mean Platelet Volume 8.9 fL (9.4-12.4); Platelet Count 176 K/uL (130-400); RDW Coefficient of Variation 12.4 % (11.5-14.5); RDW Standard Deviation 40.7 fL (36.4-46.3); Red Blood Count 4.57 M/uL (4.63-6.08); White Blood Count 6.25 K/ul (4.8-10.8)
[2022-01-23 08:08] LABS: Estimated Average Glucose 114 mg/dl; Hemoglobin A1C 5.6 % (4.5-5.6)
[2022-01-23 08:13] LABS: BUN Creatinine Ratio 18.7 (10-20); Calcium 8.9 mg/dl (8.5-10.1); Chol HDL Ratio 5.9 (0-5); Creatinine Clr Calc Pharmacy 97.8 ml/min; Est GFR (African American) 97.9 ml/min; Est GFR (Non-African American) 84.5 ml/min; Potassium 4.1 mmol/L (3.5-5.1)
[2022-01-23] MEDS: ATORVASTATIN 40 MG TAB PO SCH (08:28)
[2022-01-23] MEDS ORDERED: lisinopril 20 MG TAB PO SCH (09:00)
[2022-01-23] MEDS ORDERED: ASPIRIN 81 MG ECTAB PO SCH (09:00)
[2022-01-23] MEDS ORDERED: CLOPIDOGREL BISULFATE 75 MG TAB PO SCH (09:00)
[2022-01-23] MEDS ORDERED: PANTOprazole 40 MG TAB PO SCH (09:00)
[2022-01-23] MEDS ORDERED: METOPROLOL SUCC 50MG EXT REL TAB PO SCH (09:00)
--- NOTE | 2022-01-23 09:34 | Neurology Consultation ---
Date of Consultation January 23, 2022 Assessment & Plan (1) AF (amaurosis fugax): (2) Stenosis of right carotid artery: (3) Carotid artery dissection: Plan 71-year-old male with an isolated episode of amaurosis fugax to the right eye. No prior history of stroke or TIA. Patient found to have a high-grade proximal stenosis of the right internal carotid artery as well as probable dissection extending from the carotid bulb through the petrous segment and possibly into the cavernous, clinoid, and supraclinoid segments given lack of flow on same-day MRI. I agree with dual antiplatelet therapy, aspirin 81 mg/day, clopidogrel 75 mg/day as ordered. I also agree with high intensity statin therapy, atorvastatin 80 mg/day as ordered. As long as patient remains clinically stable, would not need urgent transfer to a tertiary center for an intervention. However, I would recommend an outpatient neurovascular consultation at [facility] within the next 1 to 2 weeks. A conventional cerebral angiogram may provide additional useful diagnostic information in his case. It appears as if he has an occlusive lesion and vascular dissection. He is clinically stable and without focal neurologic deficits at this time. Patient should have additional counseling regarding avoidance of heavy lifting, carrying, or heavy physical exertion. He will need ongoing monitoring of his condition. I anticipate the neurovascular specialist at [place] will recommend additional imaging evaluation, if not conventional arteriogram, would likely need a follow-up CTA or possibly high resolution MRA of the head and neck going forward. He will need ongoing follow-up with his primary care physician for monitoring of his blood pressure. No further immediate recommendations. History of Present Illness Reason for Consultation: Amaurosis fugax Requesting Physician: Dr. Do Attending Physician: Jose Do MD History of Present Illness The patient is a 71-year-old male with a chief complaint of sudden onset painless monocular vision loss, perceived as it grain down to vision or shade coming down over the right eye, persisting for about 15 minutes, followed by resolution, not associated with other neurologic symptoms such as change in speech or hemiparesis. Patient denies having similar symptoms previously. No prior history of stroke or TIA. Had been on a hunting trip about 3 weeks prior, recalls having some vague head pressure at that time. No injuries or illnesses. No significant neck pain. Past medical history notable for hypertension. Prescribed lisinopril and metoprolol. Patient does not take a statin. He does take daily low-dose aspirin. No history of tobacco use or diabetes. CT angiography of the head and neck was negative for hemorrhage or acute process. There was a high-grade stenosis of the proximal cervical right internal carotid artery secondary to atherosclerotic plaque. There was additional concern for right carotid dissection extending from the carotid bulb through the petrous segment and possibly cavernous, clinoid, and supraclinoid segments as well after further review of patient's brain MRI which revealed loss of the normal flow void throughout the visualized right intracranial internal carotid artery. There was no evidence of acute or subacute stroke on brain MRI although there was evidence of a mild degree of chronic microvascular ischemic disease. I did independently review these images and was able to appreciate these findings as described by the interpreting radiologist. His case was discussed with vascular surgery. Dual antiplatelet therapy was recommended, aspirin 81 mg/day, clopidogrel 75 mg/day. He was also loaded with 300 mg of clopidogrel and a full dose, 324 mg, aspirin. He was started on high intensity statin therapy, atorvastatin 80 mg/day as well. Case is apparently also been discussed with [place] neurology as he was a stroke alert. Recommendation was medical management but with potential to transfer if patient exhibits worsening clinical status. This morning, patient continues to report no recurrence of neurologic symptom, vision stable. No associated weakness, numbness, or change in speech. No vertigo. Denies headache or neck pain at this time. No ocular pain. Allergies Allergy/AdvReac Type Severity Reaction Status Date / Time acetaminophen [From Tylenol] Allergy Intermediate Hives Verified 01/22/22 14:19 Home Medications Medication Instructions Recorded Confirmed Type aspirin 81 mg tablet,delayed 81 mg PO DAILY 09/30/18 01/22/22 History release (Aspir-) esomeprazole magnesium 20 mg 20 mg PO DAILY 09/30/18 01/22/22 History capsule,delayed release (Nexium) hydrocortisone 1 % topical cream 1 applic topical BID PRN Pain 09/30/18 01/22/22 History ibuprofen 200 mg capsule (Motrin 400 mg PO Q6H PRN Pain 09/30/18 01/22/22 History IB) lisinopril 20 mg tablet 20 mg PO DAILY 09/30/18 01/22/22 History metoprolol succinate 50 mg 50 mg PO DAILY 01/22/22 01/22/22 History tablet,extended release 24 hr Patient History Medical History Abnormal resting ECG findings Diffuse T wave inversion. Prompted cardiac workup in 2007 -- cath showed normal coronary arteries. GERD (gastroesophageal reflux disease) Hypertension Osteoarthritis Surgical History History of cardiac cath 8 YRS AGO History of colonoscopy History of dental surgery Post insertion History of total shoulder replacement Hx of arthroscopy of right knee Family History Father Pancreatic cancer Social History Smoking Status: Never smoker Second Hand Exposure: No; Hx Alcohol Use: No Hx Substance Use: No Preferred Language: [place] Leonean Communication Ability: Effective Shooter Helper Required: No Beliefs That Will Affect Care: None Current Living Situation: Spouse Current Living Situation Comment: home with Other Information That Helps Us Care for You: No Feels Safe at Home: Yes Safety Concerns: Feels Safe At This Time Assistive Devices: Glasses Review of Systems Constitutional: no fever and no chills Eyes: as per Subjective / HPI Ear, Nose, Mouth, Throat: no hearing loss Respiratory: no cough and no dyspnea Cardiovascular: + palpitations Gastrointestinal: no nausea and no vomiting Genitourinary: no dysuria Musculoskeletal: no myalgia Integumentary: no rash and no lesions Neurologic: as per Subjective / HPI Psychiatric: no depression and no anxiety Hematologic / Lymphatic: no easy bleeding and no easy bruising Exam (Neuro) Constitutional: well developed and well nourished; no acute distress Eyes: normal visual chamberlain by confrontation, PERRL, normal accommodation and EOM intact bilaterally; no fundoscopic abnormality, no nystagmus and no papilledema Cardiovascular: Vessels: normal carotid upstroke; no carotid bruit Neurologic: Oriented to:: Person, Place and Time Memory: Short Term Intact and Remote Intact Attention: Span Intact and Concentration Intact Language: Naming Objects and Repeating Phrases Speech Fluency: negative Dysarthria Speech Aphasia: negative Aphasia Fund of Knowledge: Current Events, Past History and Vocabulary Cranial Nerves: Normal II (Visual chamberlain full to confrontation, visual acuity normal), III, IV, (Pupils equal round reactive to light and accommodation, eye movements normal), V (Facial sensation intact), VII (There is no facial droop or weakness), VIII (Hearing intact), IX, X (Palate elevates to midline), XI (Shoulder shrug intact) and XII (Tongue p rotrudes to midline) Motor Strength: Normal Lower Extremities and Normal Upper Extremities; negative Pronator Drift Motor Tone: Normal Lower Extre mities and Normal Upper Extremities Muscle Bulk/Involuntary Movements: No Involuntary Movements; negative Muscle Atrophy Sensation: Light Touch Intact, Pain/Temperature Intact, Vibration Intact and Proprioception Intact Coordination: Normal; negative Limited Balance, Dysdiadochokinesia, Finger-Nose Abnormal or Heel-Patel Abnormal Deep Tendon Reflexes: Rt Triceps: 2+, Lt Triceps: 2+, Rt Biceps: 2+, Lt Biceps: 2+, Rt Brachioradialis: 2+, Lt Brachioradialis: 2+, Rt Patellar: 2+, Lt Patellar: 2+, Rt Ankle: 2+ and Lt Ankle: 2+ Special Tests: negative Babinski Present Gait: Normal Station and Gait Results & Data ([facility]) Vital Signs (Past 12 Hours) Vital Signs Temp Pulse Pulse Resp BP Pulse Ox O2 Del Method 01/23/22 08:06 36.9 C 66 18 102/53 L 94 Room Air 01/23/22 07:00 63 01/23/22 02:50 36.9 C 65 18 122/75 97 Room Air 01/22/22 23:28 63 01/22/22 23:17 107/61 01/22/22 23:13 36.5 C 67 18 96/50 L 95 Room Air Laboratory Results WBC 6.25, hemoglobin 14.4, hematocrit 41.1, platelet count 176, sodium 137, potassium 4.1, BUN 17, creatinine 0.91, glucose 98, hemoglobin A1c 5.6, triglycerides 201, cholesterol 142, LDL 78, VLDL 40, HDL 24, SARS-CoV-[address] of the head, CT angiography of the head and neck, and brain MRI are as described in the history of present illness. I independently reviewed these images in conjunction with review of the radiology reports. Electrocardiogram revealed a normal sinus rhythm, 73 bpm. Coding Level of Care Code 31840 Initial Inpt Care Lvl 3 Diagnoses AF (amaurosis fugax) G45.3 Stenosis of right carotid artery I65.21 Carotid artery dissection I77.71
--- NOTE | 2022-01-23 09:42 | Medical Student Progress Note ---
Date of Service January 23, 2022 Assessment & Plan (1) AF (amaurosis fugax): Plan: Amaurosis Fugax -Hemodynamically stable. -Vascular surgery consulted. They recommended starting dual antiplatelet therapy with aspirin and Plavix. Update if vision worsens and stent placement is required. -Consulted Neurology. T -Head CT, Head CTA, Neck CTA: high-grade stenosis of the proximal cervical segment right ICA secondary to atheromatous plaque. -Brain MRI: Loss of the normal flow-void throughout the visualized right intracranial internal carotid artery resulting in moderate to severe stenosis. This is consistent with an acute dissection. -ECHO: EF 60-65%, left ventricular systolic function normal. -Overnight: patient received 324 mg aspirin, 300 mg Plavix. Started on atorvastatin 80mg. -CMP significant for: Triglycerides 201, VLDL - 40, Cholesterol/HDL 5.9. CBC within normal limits. -Continue to monitor for changes with q4hl. -Continue taking 81 mg aspirin and 75 mg Plavix. -Avoid heavy lifting. -Follow up with vascular surgery. Carotid Artery Dissection -See above. GERD -Switched from omeprazole to pantoprazole 40 mg to avoid omeprazole interaction with Plavix. Hypertension -Continue metoprolol 50 mg and lisinopril 20 mg. -Follow up with PCP for regular blood pressure checks. Atrial Ectopy -See above Stenosis of Right Carotid Artery -See above TIA -See above Admission and Anticipated Discharge Date Admission Date: January 22, 2022 Supervising Attestation I reviewed the medical student note above. Please see my full attestation in the resident documentation from the same day. Subjective Chaim Charles is a 71 year old male with past medical history of HTN, GERD, and osteoarthritis who presented to the ED on 01/22/22 for decreased vision of his right eye the morning of his admission. He reported that it lasted for 30 minutes and described it as a grayness over his entire right visual field. He was seen by outpatient ophthalmology, and since no peripheral cause was found, they sent him to the ED for evaluation. He noted that he had similar symptoms a year ago while on a hunting trip. Additionally, he has also been having left sided chest discomfort and palpitations over the last few weeks. He was seen by Felisha for a cardiac cath in 2019 which showed no CAD, mitral regurgitation, aortic stenosis, or abnormalities of LV end-diastolic pressure. He also had an outpatient monitor which showed ectopy. He was started on a metoprolol and the symptoms have been slowly improving, but have not disappeared. He has no history of TIA, stroke, or TN. Today, he is feeling okay and asking when he can go home. He has been experiencing some left sided chest pressure over the past couple weeks that is still present today. He has also had some left sided leg discomfort for the past couple of weeks. He notes that this might correlate with recent travel to [place]. He is not having any shortness of breath or leg swelling. His vision has been at baseline since the first episode yesterday and he has not experienced any pain with eye movements. He reports that he has chronic back pain that is currently at typical baseline. He does not endorse changes in sensation, numbness, tingling, or weakness. Review of Systems Review of Systems: See HPI. Physical Exam Physical Exam: Constitutional: Well-appearing, no acute distress. HEENT: NCAT, no conjunctival injection. No JVD appreciated. CV: Regular rhythm, no murmur appreciated, extremities well-perfused, no LE edema. Resp: CTABL, no wheezes/rales/rhonchi appreciated,no increased work of breathing. GI: soft, nondistended, nontender, BS normoactive. MSK: No gross deformities appreciated. Skin: Warm, dry, no rash appreciated. Neuro: Alert and oriented X 3. No nystagmus or ptosis appreciated. Peripheral vision intact bilaterally. Facial muscle strength equal bilaterally. No speech abnormalities appreciated. Results & Data ([facility]) Vital Signs (Past 12 Hours) Vital Signs Temp Pulse Pulse Resp BP Pulse Ox O2 Del Method 01/23/22 08:06 36.9 C 66 18 102/53 L 94 Room Air 01/23/22 07:00 63 01/23/22 02:50 36.9 C 65 18 122/75 97 Room Air 01/22/22 23:28 63 01/22/22 23:17 107/61 01/22/22 23:13 36.5 C 67 18 96/50 L 95 Room Air Laboratory Results Laboratory Results WBC 6.25 K/ul (4.8-10.8) 01/23/22 07:15 RBC 4.57 M/uL (4.63-6.08) L 01/23/22 07:15 Hgb 14.4 g/dl (14.0-18.0) 01/23/22 07:15 Hct 41.1 % (40.1-51.0) 01/23/22 07:15 MCV 89.9 fL (80.0-100.0) 01/23/22 07:15 MCH 31.5 pg (25.0-34.0) 01/23/22 07:15 MCHC 35.0 g/dL (32.0-36.0) 01/23/22 07:15 RDW Std Deviation 40.7 fL (36.4-46.3) 01/23/22 07:15 RDW Coeff of Sravani 12.4 % (11.5-14.5) 01/23/22 07:15 Plt Count 176 K/uL (130-400) 01/23/22 07:15 MPV 8.9 fL (9.4-12.4) L 01/23/22 07:15 Immature Gran % (Auto) 0.2 % 01/22/22 11:25 Neut % (Auto) 49.1 % 01/22/22 11:25 Lymph % (Auto) 38.8 % 01/22/22 11:25 [place] % (Auto) 8.0 % 01/22/22 11:25 Eos % (Auto) 2.9 % 01/22/22 11:25 Baso % (Auto) 1.0 % 01/22/22 11:25 Neut # (Auto) 2.89 K/uL (1.4-6.5) 01/22/22 11:25 Lymph # (Auto) 2.28 K/uL (1.2-3.4) 01/22/22 11:25 [place] # (Auto) 0.47 K/uL (0.24-0.82) 01/22/22 11:25 Eos # (Auto) 0.17 K/uL (0-0.50) 01/22/22 11:25 Baso # (Auto) 0.06 K/uL (0-0.2) 01/22/22 11:25 Immature Gran # (Auto) 0.01 K/uL (0.00-0.02) 01/22/22 11:25 PT 10.9 Seconds (9.0-12.0) 01/22/22 11:25 INR 1.0 (0.9-1.1) 01/22/22 11:25 APTT 25.7 Seconds (21.0-31.0) 01/22/22 11:25 PTT Ratio 0.9 01/22/22 11:25 Sodium 137 mmol/L (136-145) 01/23/22 07:15 Potassium 4.1 mmol/L (3.5-5.1) 01/23/22 07:15 Chloride 105 mmol/L (98-107) 01/23/22 07:15 Carbon Dioxide 28 mmol/L (21-32) 01/23/22 07:15 Anion Gap 4 (3-11) 01/23/22 07:15 BUN 17 mg/dl (6-23) 01/23/22 07:15 Creatinine 0.91 mg/dl (0.6-1.4) 01/23/22 07:15 Est Cr Clr Drug Dosing 97.8 ml/min 01/23/22 07:15 Est GFR ( Amer) 97.9 ml/min 01/23/22 07:15 Est GFR (Non-Af Amer) 84.5 ml/min 01/23/22 07:15 BUN/Creatinine Ratio 18.7 (10-20) 01/23/22 07:15 Glucose 98 mg/dl (70-99(Fasting)) 01/23/22 07:15 Estimat Average Glucose 114 mg/dl 01/23/22 07:15 Hemoglobin A1c 5.6 % (4.5-5.6) 01/23/22 07:15 Calcium 8.9 mg/dl (8.5-10.1) 01/23/22 07:15 Magnesium 2.0 mg/dl (1.7-2.4) 01/22/22 11:25 Total Bilirubin 0.5 mg/dl (0.2-1.0) 01/22/22 11:25 AST 17 U/L (13-39) 01/22/22 11:25 ALT 23 U/L (7-52) 01/22/22 11:25 Alkaline Phosphatase 100 U/L (34-104) 01/22/22 11:25 Troponin I High Sens 7.1 pg/ml (0-20) 01/22/22 11:25 Total Protein 7.1 gm/dl (6.0-8.3) 01/22/22 11:25 Albumin 4.1 gm/dl (3.4-5.0) 01/22/22 11:25 Globulin 3.0 gm/dl (2.5-4.0) 01/22/22 11:25 Albumin/Globulin Ratio 1.4 (0.9-2) 01/22/22 11:25 Triglycerides 201 mg/dl (0-150) H 01/23/22 07:15 Cholesterol 142 mg/dl (0-200) 01/23/22 07:15 LDL Cholesterol, Calc 78 mg/dl 01/23/22 07:15 VLDL Cholesterol, Calc 40 mg/dl (0-30) H 01/23/22 07:15 HDL Cholesterol 24 mg/dl 01/23/22 07:15 Cholesterol/HDL Ratio 5.9 (0-5) H 01/23/22 07:15 Urine Color Yellow 01/22/22 12:35 Urine Appearance Clear (Clear) 01/22/22 12:35 Urine pH 7.5 (4.5-7.5) 01/22/22 12:35 Ur Specific [place] 1.011 (1.000-1.030) 01/22/22 12:35 Urine Protein Negative (Negative) 01/22/22 12:35 Urine Glucose (UA) Negative (Negative) 01/22/22 12:35 Urine Ketones Negative (Negative) 01/22/22 12:35 Urine Blood Negative (Negative) 01/22/22 12:35 Urine Nitrite Negative (Negative) 01/22/22 12:35 Urine Bilirubin Negative (Negative) 01/22/22 12:35 Urine Urobilinogen Negative (Negative) 01/22/22 12:35 Ur Leukocyte Esterase Negative (Negative) 01/22/22 12:35 SARS-CoV-2, RNA, NAAT NEGATIVE (NEGATIVE) 01/22/22 12:18 Impressions Chest CTA 01/22/22 11:46 CT ANGIOGRAPHY OF THE CHEST DISSECTION PROTOCOL CLINICAL HISTORY: Chest pain with neurologic signs and symptoms. COMPARISON STUDY: Chest radiograph January 25, 2009. TECHNIQUE: Before and following the IV administration of 120 mL of Optiray, helical axial images of the chest were obtained. Maximal intensity projections and sagittal and coronal reformats were viewed on an independent 3D workstation. IV contrast was administered without complication. Automated exposure control was utilized for the study. A dose lowering technique was utilized adhering to the principles of ALARA. CT DOSE: 2413.51 mGy.cm FINDINGS: The caliber of the thoracic aorta is normal. There is no thoracic aortic dissection. Mild cardiomegaly is noted. There is moderate coronary artery calcification. No central pulmonary emboli are identified. No pneumothorax or pleural effusion is present. There is no thoracic lymphadenopathy. A few small pulmonary nodules measure up to 5 mm. The largest is within the left lower lobe on image 179 of 306. There is no consolidation. No acute fractures within the bony thorax are identified. Hepatic steatosis is noted. A left adrenal nodule is likely benign. Heterogeneous enhancement of the spleen is probably related to the phase of enhancement. There is a splenule. IMPRESSION: 1. No thoracic aortic dissection. 2. No acute intrathoracic findings. 3. Mild cardiomegaly and moderate coronary artery calcification. 4. A few small low suspicion pulmonary nodules. Follow-up chest CT in 6 months to ensure stability is recommended. ACT 112: Negative or not required by law. Electronically signed by: Darryl Shipley M.D. 01/22/2022 1:[address] 01/22/22 11:46 CT head/brain wo con, CT angio head w con, CT angio neck with con CLINICAL HISTORY: 71 years-old Male with Stroke Like Symptoms. Acute strokelike symptoms TECHNIQUE: Multiple axial CT images of the head were obtained without contrast. CTA head and neck was also obtained following the intravenous administration of 120 mL Optiray 320. 3-D coronal and sagittal MIPS were obtained from the axial data set and were symmetric for review. All measurements were obtained according to NASCET criteria. A dose lowering technique was utilized adhering to the principles of ALARA. COMPARISON: None FINDINGS: CT HEAD: No acute intracranial hemorrhage, midline shift, intracranial mass, hydrocephalus, territorial ischemia or abnormal extra-axial collection. Involutional changes. Mild white matter hypodensities suggestive of chronic microvascular ischemic disease. The calvarium is intact. The paranasal sinuses, mastoid air cells, and middle ear cavities are clear. CTA: Atherosclerosis of the thoracic aorta. Patency of the innominate and imaged subclavian arteries. The common carotid arteries are widely patent. Atherosclerotic plaque of the right greater than left carotid bulbs. There is less than 50% stenosis of the left ICA. There is high-grade (greater than 90%) stenosis with near occlusion of the proximal cervical segment right ICA on image 271 secondary to atheromatous plaque. Calcified plaque of the cavernous, clinoid and supraclinoid segments. Approximately 50% stenosis about the supraclinoid right ICA on image 124. The anterior and middle cerebral arteries are widely patent. Codominant and widely patent vertebral arteries. The basilar and posterior cerebral arteries appear patent. Cerebral venous sinuses are also patent. There is no abnormal intracranial enhancement identified. Lung apices are clear. Unremarkable soft tissues. Degenerative changes of the cervical spine. IMPRESSION: 1. No acute intracranial abnormality identified. 2. High-grade stenosis of the proximal cervical segment right ICA secondary to atheromatous plaque. 3. Otherwise unremarkable CTA of the head and neck without additional high-grade stenosis. No aneurysm, dissection or arterial occlusion identified. ACT 112: Negative or not required by law. The above report was generated using voice recognition software. It may contain grammatical, syntax or spelling errors. Electronically signed by: García Campbell M.D. 01/22/2022 1:25 PM Head CTA 01/22/22 11:46 CT head/brain wo con, CT angio head w con, CT angio neck with con CLINICAL HISTORY: 71 years-old Male with Stroke Like Symptoms. Acute strokelike symptoms TECHNIQUE: Multiple axial CT images of the head were obtained without contrast. CTA head and neck was also obtained following the intravenous administration of 120 mL Optiray 320. 3-D coronal and sagittal MIPS were obtained from the axial data set and were symmetric for review. All measurements were obtained according to NASCET criteria. A dose lowering technique was utilized adhering to the principles of ALARA. COMPARISON: None FINDINGS: CT HEAD: No acute intracranial hemorrhage, midline shift, intracranial mass, hydrocephalus, territorial ischemia or abnormal extra-axial collection. Involutional changes. Mild white matter hypodensities suggestive of chronic microvascular ischemic disease. The calvarium is intact. The paranasal sinuses, mastoid air cells, and middle ear cavities are clear. CTA: Atherosclerosis of the thoracic aorta. Patency of the innominate and imaged subclavian arteries. The common carotid arteries are widely patent. Atherosclerotic plaque of the right greater than left carotid bulbs. There is less than 50% stenosis of the left ICA. There is high-grade (greater than 90%) stenosis with near occlusion of the proximal cervical segment right ICA on image 271 secondary to atheromatous plaque. Calcified plaque of the cavernous, clinoid and supraclinoid segments. Approximately 50% stenosis about the supraclinoid right ICA on image 124. The anterior and middle cerebral arteries are widely patent. Codominant and widely patent vertebral arteries. The basilar and posterior cerebral arteries appear patent. Cerebral venous sinuses are also patent. There is no abnormal intracranial enhancement identified. Lung apices are clear. Unremarkable soft tissues. Degenerative changes of the cervical spine. IMPRESSION: 1. No acute intracranial abnormality identified. 2. High-grade stenosis of the proximal cervical segment right ICA secondary to atheromatous plaque. 3. Otherwise unremarkable CTA of the head and neck without additional high-grade stenosis. No aneurysm, dissection or arterial occlusion identified. ACT 112: Negative or not required by law. The above report was generated using voice recognition software. It may contain grammatical, syntax or spelling errors. Electronically signed by: García Campbell M.D. 01/22/2022 1:25 PM Neck CTA 01/22/22 11:46 CT head/brain wo con, CT angio head w con, CT angio neck with con CLINICAL HISTORY: 71 years-old Male with Stroke Like Symptoms. Acute strokelike symptoms TECHNIQUE: Multiple axial CT images of the head were obtained without contrast. CTA head and neck was also obtained following the intravenous administration of 120 mL Optiray 320. 3-D coronal and sagittal MIPS were obtained from the axial data set and were symmetric for review. All measurements were obtained according to NASCET criteria. A dose lowering technique was utilized adhering to the principles of ALARA. COMPARISON: None FINDINGS: CT HEAD: No acute intracranial hemorrhage, midline shift, intracranial mass, hydrocephalus, territorial ischemia or abnormal extra-axial collection. Involutional changes. Mild white matter hypodensities suggestive of chronic microvascular ischemic disease. The calvarium is intact. The paranasal sinuses, mastoid air cells, and middle ear cavities are clear. CTA: Atherosclerosis of the thoracic aorta. Patency of the innominate and imaged subclavian arteries. The common carotid arteries are widely patent. Atherosclerotic plaque of the right greater than left carotid bulbs. There is less than 50% stenosis of the left ICA. There is high-grade (greater than 90%) stenosis with near occlusion of the proximal cervical segment right ICA on image 271 secondary to atheromatous plaque. Calcified plaque of the cavernous, clinoid and supraclinoid segments. Approximately 50% stenosis about the supraclinoid right ICA on image 124. The anterior and middle cerebral arteries are widely patent. Codominant and widely patent vertebral arteries. The basilar and posterior cerebral arteries appear patent. Cerebral venous sinuses are also patent. There is no abnormal intracranial enhancement identified. Lung apices are clear. Unremarkable soft tissues. Degenerative changes of the cervical spine. IMPRESSION: 1. No acute intracranial abnormality identified. 2. High-grade stenosis of the proximal cervical segment right ICA secondary to atheromatous plaque. 3. Otherwise unremarkable CTA of the head and neck without additional high-grade stenosis. No aneurysm, dissection or arterial occlusion identified. ACT 112: Negative or not required by law. The above report was generated using voice recognition software. It may contain grammatical, syntax or spelling errors. Electronically signed by: García Campbell M.D. 01/22/2022 1:25 PM Brain MRI 01/22/22 14:52 Brain MRI WITHOUT CONTRAST HISTORY: Right vision loss. Stroke workup. TECHNIQUE: Multiplanar multisequence MRI of the brain was performed without the use of contrast. COMPARISON STUDY: Head and neck CTA 01/22/2022. FINDINGS: No areas of restricted diffusion to suggest an acute infarction. The midline structures are intact. The ventricles and sulci demonstrate mild age- related involutional changes. Small retention cyst within the left maxillary sinus. The orbits appear unremarkable. There is mild motion artifact. Mild periventricular white matter T2 hyperintensity is nonspecific but favors microvascular ischemic changes given the patient's age. There is no mass, hematoma, midline shift. Loss of the normal flow-void throughout the visualized right intracranial internal carotid artery resulting in moderate to severe stenosis. This is consistent with an acute dissection. This has progressed compared to the same day head CTA. IMPRESSION: 1. Loss of the normal flow-void throughout the visualized right intracranial internal carotid artery resulting in moderate to severe stenosis. This is consistent with an acute dissection. This has progressed compared to the same day head CTA. 2. No acute infarct or intracranial hemorrhage. 3. This report was called/faxed to the referring physician following dictation. ACT 112: Negative or not required by law. Electronically signed by: Ferny Ureña M.D. 01/22/2022 5:34 PM ECG Rate (beats per minute): 73 Rhythm: normal sinus Findings: + T-wave inversion (lateral)
--- NOTE | 2022-01-23 12:19 | XCELERA ---
[id number] [id number]
--- NOTE | 2022-01-23 12:24 | Pharmacy Report ---
- Date of Service January 23, 2022 - Pharmacy CVA/TIA Medication Review Medications to Prevent Stroke handout has been added to the patients discharge packet. Antiplatelet(s) * Dual antiplatelet therapy recommended by Neuro. Patient is currently on both ASA 81 mg and Plavix 75 mg daily. Continue on discharge. * Patient on Esomeprazole 20 mg daily as an outpatient but due to DDI with Clopidogrel, provider made aware to consider switching to Pantoprazole 40 mg daily. Cholesterol * High intensity statin: atorvastatin 80 mg daily DVT Prophylaxis * SCD knee Therapeutic Anticoagulation * No history of Afib/Aflutter noted Type 2 Diabetes * Patient does not have T2DM
[2022-01-23] MEDS ORDERED: STROKE PATIENT DISCHARGE STA (14:07)
--- NOTE | 2022-01-23 14:07 | Discharge Summary ---
Date of Service January 23, 2022 Admission HPI Per Admitting Provider Chaim is a 71 year old male with a PMH significant for Hypertension, hyperlipidemia, GERD, and obesity who presented to the [facility] ED on 01/22/22 with a chief complaint of vision changes in his right eye. Per the ED staff and chart review, the patient has been having intermittent chest pain over the past few weeks. He was apparently seen at our facility for this complaint but there is no documentation in the chart. Per the ED note, the patient had a complete workup in the ED and was discharged on holter monitor which reportedly showed frequent ectopy. For this, he was recently started on metoprolol which has caused some improvement in his chest discomfort. This morning, he started experiencing blurry vision in his right eye, because of this he was seen by his [employer] Clerk. A completely eye exam was performed and was found to be normal, they recommended coming to the ED for further evaluation for possible stroke/TIA. In the ED the patient was found to be afebrile, hemodynamically stable, and stable on RA. Labs were remarkable for a WBC WNL, CMP WNL, high sensitivity troponin of 7.1, clean UA, and covid negative. CT of the head and CTA of the head and neck showed high grade stenosis of the proximal cervical segment of the right ICA, otherwise no acute findings were noted. At the time of the exam the patient was resting comfortably in bed in no acute distress. History was obtained from the patient and his sitting bedside. They confirmed that his chest pain and heart palpitations have significantly improved after starting the metoprolol. He states that he woke up this morning in his normal state of health. He was sitting at his kitchen table when he suddenly had vision changes in his right eye. He states that his vision turned soto in his right eye and he also saw some flashes of light, this lasted for approximately 15 minutes then resolved. At the current time his vision is essentially back to baseline, but his right pupil is still dilated from his eye exam this morning. He denies recent fevers, chills, changes in taste, hearing, and smell, chest pain, SOB, abdominal pain, nausea, vomiting, diarrhea, dysuria, hematuria, and recent falls. The vision change in his right eye occurred one other time while [place] approximately one year ago. Recently he has noticed that he has been getting headaches more frequently that feel as though his head is pounding. He denies any recent tick bites or rashes. He does not believe that he has been started on a statin previously for high cholesterol. I spoke to he and his regarding code status, he would like to be a Full Code. Admission Exam Per Admitting Provider Physical Exam: General:In no acute distress, stated age, well-nourished, good hygiene HEENT:Normocephalic, atraumatic, no scleral icterus, pupils around round and reactive to light,right pupil is currently dilated from eye exam earlier today, bruit noted over the right carotid artery,moist mucus membranes, trachea midline, no thyromegaly Chest/Pulm:No respiratory distress, symmetrical chest expansion, clear breath sounds throughout Cardiac:RRR, no murmurs noted Abdomen:Negative for ascites and bruising, normoactive bowel sounds, soft, non-tender to palpation throughout Musculoskeletal:Symmetrical and without signs of acute trauma, upper and lower extremities with full ROM, no atrophy, spasticity, or flaccidity Extremities:Radial, dorsalis pedis, and posterior tibial pulses are intact and symmetrical, no edema noted in the BL LE's Skin:Warm, dry, no rashes , lesions, or scars noted Neuro:Alert and oriented to person, place, month, year, and president, no focal defects besides his right pupil dilation, CN II-XII tested and intact, finger to nose test negative, no tremors noted Psych:No acute distress, calm and cooperative during the exam Principal Diagnosis Right ICA Stenosis Discharge Exam Constitutional WD/WN, vitals as above Eyes PERRL, conjunctivae normal, anicteric sclerae ENMT external ear and nose normal, oropharynx normal Neck trachea midline, no thyromegaly Respiratory normal respiratory effort, lungs clear to auscultation Cardiovascular RRR, no murmur, no edema Gastrointestinal (Abdomen) Inspection/Auscultation: abdomen normal to inspection Percussion/Palpation: abdomen soft; abdomen nontender Musculoskeletal no cyanosis or clubbing, extremities motor strength 5/5 Skin no rashes, warm and dry Neurologic CN's II-XI intact bilaterally Psychiatric A+Ox3, euthymic affect Discharge Data Allergies Allergy/AdvReac Type Severity Reaction Status Date / Time acetaminophen [From Tylenol] Allergy Intermediate Hives Verified 01/22/22 14:19 Consultations 11/02/22 13:56 ED Decision to Admit Stat 01/22/22 14:55 Consult Vascular Surgery Routine 01/22/22 20:14 Consult Neurology Routine Ordered Studies 01/22/22 11:46 CT angio chest dissec wo/w con Stat CT angio head w con Stat CT angio neck with con Stat CT head/brain wo con Stat 01/22/22 14:52 MRI Brain [MR brain wo con] Urgent Hospital Course (1) AF (amaurosis fugax): Head Neck CTA: No acute intracranial abnormality identified.High-grade stenosis of the proximal cervical segment right ICA secondary to atheromatous plaque. Otherwise unremarkable CTA of the head and neck without additional high-grade stenosis. No aneurysm, dissection or arterial occlusion identified. Brain MRI: Loss of the normal flow-void throughout the visualized right intracranial internal carotid artery resulting in moderate to severe stenosis. This is consistent with an acute dissection. This has progressed compared to the same day head CTA.No acute infarct or intracranial hemorrhage.This report was called/faxed to the referring physician following dictation. Chest CTA: No thoracic aortic dissection. No acute intrathoracic findings. Mild cardiomegaly and moderate coronary artery calcification. A few small low suspicion pulmonary nodules. Follow-up chest CT in 6 months to ensure stability is recommended. -Patient symptoms currently at baseline vitals stable -Neurology Consulted, recommend dual antiplatelet therapy and high dose statin recommend an outpatient neurovascular consultation at [facility] within the next 1 to 2 weeks. A conventional cerebral angiogram may provide additional useful diagnostic information in his case. monitor blood pressure with PCP -Vascular Surgery consulted, recommend dual antiplatelet therapy if condition acutely worsens, may need stent placement patient to follow with a vascular surgeon in outpatient -Started ASA, Plavix, received loading dose in hospital continue ASA 81mg and Plavix 75mg daily -Started Atorvastatin 80mg daily - Echo EF 60-65% (2) Carotid artery dissection: see above (3) GERD (gastroesophageal reflux disease): Switched omeprazole to protonix since he has started plavix (4) Hypertension: continue metoprolol, lisinopril (5) Atrial ectopy: continue metoprolol (6) Stenosis of right carotid artery: see above (7) TIA (transient ischemic attack): see above Total Time Total Time Spent Total Time Spent (In Minutes): 45 minutes Discharge Plan Discharge Items Patient Disposition: Home - Self-Care Reason For Visit: TIA SYMPTOMS Discharge Diagnosis: Internal Carotid Artery Stenosis Activity: Resume your previous activity Non-emergency contact: Primary Care Provider Call non-emergency contact if: you have any medication questions Follow-up/Referrals: Carol Ann Robles [Primary Care Provider] - 01/27/22 3:10 pm (THIS APPOINTMENT WILL BE WITH DR RIZZO) Derek Ortiz MD [Physician] - Diet: Regular Addtl Attending Provider Instructions: You were admitted to the hospital for temporary blindness. You had a CT and MRI of your head and neck done, and were found to have high grade right internal carotid artery stenosis and possible dissection of the artery. In other words, the blood flow that feeds your eyes and brain is very clogged, and occasionally narrows enough to cut off blood flow to your eye causing temporary blindness. You were seen by Vascular Surgery and Neurology. As your blindness has resolved at this time, we will try to medically manage your symptoms for now to place you in a better position for intervention. Please follow up with a vascular surgeon of your choice for further evaluation of your artery. We have started you on 2 blood thinners, Aspirin and Plavix, to prevent further clotting of your arteries. We have also started you on a cholesterol lowering medication called Atorvastatin to prevent pieces of your clots from breaking off and becoming a stroke. We will switch your Omeprazole to Protonix to prevent any medication interference with your blood thinners. At home, please watch out for the following symptoms of worsening blood clots: loss of vision, persistent headache, weakness of limbs or facial muscles, loss of sensation of skin. Should these symptoms occur, please go to the ED. Do not lift any heavy objects at this time. Please keep an eye on your blood pressure, and take your daily blood pressure medications. If your blood pressure is persistently elevated at home, please contact your PCP. A discharge summary will be sent to your primary care physician to ensure continuity of care. Please bring this discharge summary with you to your next office appointment so that your provider can review it at that time. Follow-up appointments: Make a follow-up appointment with your PCP within the next week. It is very important that you follow up with them shortly after discharge from the hospital. Make a follow-up appointment with your Vascular Surgeon. It is very important that you follow up with them after discharge from the hospital. Keep all your follow-up appointments as already scheduled. If you cannot make an appointment, notify your provider. Medications: Your medication list has been reviewed and reconciled upon discharge to ensure accuracy and continuity of care. An updated list of all your medications is included with your hospital discharge paperwork. Please review this list closely, and make note of any changes. * We sent a new medication called Aspirin 81mg to your pharmacy, please take 1 tab daily * We sent a new medication called Plavix 75mg to your pharmacy, please take 1 tab daily * We sent a new medication called Atorvastatin 80mg to your pharmacy, please take 1 tab each night * We sent a new medication called Protonix 40mg to your pharmacy, please take 1 tab daily * Please stop your Omeprazole at this time. Take your medications as instructed; do not skip a dose of your medicines. Make sure all of your doctors know every medicine you are taking (including oemw-nxv-vqzidun medicines, vitamins, and supplements). Call your primary care provider before taking any new medicines (including hzvr-ezu-eijgltf medicines, vitamins, and supplements), because some of these may interact with your current medications, or may make your symptoms worse. Tell your primary care provider if you cannot afford your medications. CONTACT YOUR PRIMARY CARE PROVIDER if you experience any of the following: Elevated blood pressure Difficulty following your treatment plan, or difficulty taking medications CALL 911 OR GO TO THE EMERGENCY DEPARTMENT if you experience any of the following: Sudden, severe abdominal pain or nausea/vomiting Severe chest pain, or chest pain that radiates (moves) to your jaw or arm Sudden, severe shortness of breath or difficulty breathing Thank you for allowing us to participate in your care. Pending Studies at Discharge: No Stand-Alone Forms: My [facility], Smoking Cessation, Medications to Prevent Stroke Medications and DC Order Prescriptions: New clopidogrel 75 mg Tablet 75 mg PO QAM 30 Days Qty: 30 0RF atorvastatin 40 mg Tablet 80 mg PO QAM 30 Days Qty: 60 0RF aspirin 81 mg Tablet,Delayed Release (Dr/Ec) 81 mg PO DAILY 30 Days Qty: 30 0RF pantoprazole 40 mg Tablet,Delayed Release (Dr/Ec) 40 mg PO DAILY 30 Days Qty: 30 0RF Continued ibuprofen [Motrin IB] 200 mg Capsule 400 mg PO Q6H PRN (Reason: Pain) lisinopril 20 mg Tablet 20 mg PO DAILY hydrocortisone 1 % Cream 1 applic TOPICAL BID PRN (Reason: Pain) metoprolol succinate 50 mg tablet extended release 24 hr 50 mg PO DAILY Discontinued aspirin [Aspir-81] 81 mg Tablet,Delayed Release (Dr/Ec) 81 mg PO DAILY esomeprazole magnesium [Nexium] 20 mg Capsule,Delayed Release(Dr/Ec) 20 mg PO DAILY Discharge Orders: Discharge Order (Routine); Ordered 01/23/22 Ordered By: Teodora Ellis Admission Data Admit Date/Time: 01/22/22 14:31 Attending Provider: Cam Prince Admit Provider: Jose Do Primary Care Provider: Carol Ann Robles Other Providers: Jose Do ; William Noyola ; Derek Ortiz Other Interventions: Discharge Summary Assessment (RN) Last Done: 01/23/22 14:22 Supervising Physician Co-Signing Physician Notes I also saw the patient and confirmed hidalgo portions of the history and physical examination. I agree with impression plan as noted the resident documentation. Also personally discussed the case with both the neurology and vascular surgery consultants. Upon examination this morning and repeat examination nation early afternoon, the patient without complaints. Denied headache. No visual deficits/changes. Exam 148/79, 74, 19, 37, 95% on room air HEENT unremarkable. Mucous membranes moist. There is no bruits appreciated. Heart regular rate and rhythm Lungs clear with nonlabored respirations Abdomen soft nontender Extremities without edema Data Hemoglobin 14.4, platelet count 176 Sodium 137, potassium 4.1, BUN 17, creatinine 0.91 Triglycerides 201, cholesterol 142, LDL 78, HDL 24 Imaging MRI of the brain dated 01/22/2022 shows loss of the normal flow void throughout the visualized right intracranial internal carotid artery resulting in moderate to severe stenosis. This is consistent with an acute dissection. No acute infarct or intracranial hemorrhage is noted. A neck CTA dated 01/22/2022 shows high-grade stenosis of the proximal cervical segment of the right internal carotid artery. A head CTA dated 01/22/2022 showed no acute intracranial abnormality, high-grade stenosis of the proximal cervical segment of the right ICA. Addendum to the report dated 01/22/2022 at 2059 after review of the case and comparison to the MRI, noted decrease luminal caliber involving the majority of the right internal carotid artery extending from the carotid bulb through the petrous segment and also possibly into the cavernous, clinoid, and supraclinoid segments compatible with acute dissection. A chest CTA dated 01/22/2022 showed no thoracic aortic dissection, no acute intrathoracic findings, mild cardiomegaly and moderate coronary artery calcification. There are few small low suspicion pulmonary nodules. Follow-up chest CT in 6 months to ensure stability was recommended. Impression and plan Amaurosis fugax, right eye Right carotid artery stenosis/dissection Enteric-coated aspirin 81 mg daily plus Plavix 75 mg daily Atorvastatin 80 mg p.o. nightly Change omeprazole to Protonix in light of interaction with Plavix Outpatient follow-up with vascular surgery; PCP will be arranging Discussed signs and symptoms which would warrant return to the emergency department Counseled patient on avoidance of heavy lifting, carrying, or heavy physical exertion. Resident Activity Tracking Resident Involvement: Resident Care Provided Care Provided: Adult Hospital Medicine
--- NOTE | 2022-01-24 10:49 | Pharmacy Report ---
Pharmacist Stroke Counseling - Date of Service January 24, 2022 - Scope: Pharmacy has been consulted to provide medication discharge counseling for this patient admitted with TIA as per the Pharmacist Discharge Counseling for Stroke Patients Protocol. - Medications on Discharge: Home Medications Medication Instructions Recorded Confirmed hydrocortisone 1 % topical cream 1 applic topical BID PRN Pain 09/30/18 01/22/22 ibuprofen 200 mg capsule (Motrin 400 mg PO Q6H PRN Pain 09/30/18 01/22/22 IB) lisinopril 20 mg tablet 20 mg PO DAILY 09/30/18 01/22/22 metoprolol succinate 50 mg 50 mg PO DAILY 01/22/22 01/22/22 tablet,extended release 24 hr New Rx's Medication Instructions Recorded aspirin 81 mg tablet,delayed 81 mg PO DAILY 30 days #30 tabs 01/23/22 release atorvastatin 40 mg tablet 80 mg PO QAM 30 days #60 tabs 01/23/22 clopidogrel 75 mg tablet 75 mg PO QAM 30 days #30 tabs 01/23/22 pantoprazole 40 mg tablet,delayed 40 mg PO DAILY 30 days #30 tabs 01/23/22 release - Action: The above medications, specifically ones for stroke treatment/prophylaxis, have been reviewed in detail with the patient's over the phone post discharge. This includes indication, common adverse reactions, drug interactions, and medication administration. Medication counseling has been employed using the teach-back method to ensure understanding. - Outcome: The patient's demonstrated understanding of the medications. Additional comments: Spoke over the phone with patient's today- she was very pleasant and receptive to counseling regarding her 's meds. Reviewed new medications to prevent stroke including Aspirin, Atorvastatin, Plavix, & stopping Nexium for Protonix. Discussed why they are being used and common side effects in great detail. Reviewed how to use the medications, what to do if doses are missed, common drug interactions, common side effects, what to watch out for while using the medications. asked me reason for stopping Nexium. I explained drug interaction between Nexium and Plavix and that Protonix works the same way as Nexium. Patient's verbalized understanding and restated the hidalgo points of each medication. She asked for number to call back if any further questions and I left the 3rd floor [facility] number [phone]. I explained that if patient experiences any side effects that they should reach out to their PCP. Thank you for allowing pharmacy to be involved in the care of this patient. Please call [phone] with any additional questions
--- NOTE | 2022-01-28 14:56 | Consultation ---
Date of Consultation January 28, 2022 History of Present Illness Attending Physician: Cam Prince DO History of Present Illness Patient was discharged prior to being seen Allergies Allergy/AdvReac Type Severity Reaction Status Date / Time acetaminophen [From Tylenol] Allergy Intermediate Hives Verified 01/22/22 14:19 Home Medications Medication Instructions Recorded Confirmed Type hydrocortisone 1 % topical cream 1 applic topical BID PRN Pain 09/30/18 01/22/22 History ibuprofen 200 mg capsule (Motrin 400 mg PO Q6H PRN Pain 09/30/18 01/22/22 History IB) lisinopril 20 mg tablet 20 mg PO DAILY 09/30/18 01/22/22 History metoprolol succinate 50 mg 50 mg PO DAILY 01/22/22 01/22/22 History tablet,extended release 24 hr aspirin 81 mg tablet,delayed 81 mg PO DAILY 30 days #30 tabs 01/23/22 Rx release atorvastatin 40 mg tablet 80 mg PO QAM 30 days #60 tabs 01/23/22 Rx clopidogrel 75 mg tablet 75 mg PO QAM 30 days #30 tabs 01/23/22 Rx pantoprazole 40 mg tablet,delayed 40 mg PO DAILY 30 days #30 tabs 01/23/22 Rx release Patient History Medical History Abnormal resting ECG findings Diffuse T wave inversion. Prompted cardiac workup in 2007 -- cath showed normal coronary arteries. GERD (gastroesophageal reflux disease) Hypertension Osteoarthritis Surgical History History of cardiac cath 8 YRS AGO History of colonoscopy History of dental surgery Post insertion History of total shoulder replacement Hx of arthroscopy of right knee Family History Father Pancreatic cancer Social History Smoking Status: Never smoker Second Hand Exposure: No; Hx Alcohol Use: No Hx Substance Use: No Preferred Language: Congolese Communication Ability: Effective Change Agent Required: No Beliefs That Will Affect Care: None Current Living Situation: Spouse Current Living Situation Comment: home with Feels Safe at Home: Yes Assistive Devices: Glasses
== END 2022-01-23 15:16 | disposition home or self-care (01) ==
LOC: ED 11:14 → 2N 11:14 → SUATTDRO 14:31 → 2N 17:25
DX: G45.3 Amaurosis fugax; Z79.82 Long term (current) use of aspirin; G45.9 Transient cerebral ischemic attack, unspecified; Z79.899 Other long term (current) drug therapy; E78.5 Hyperlipidemia, unspecified; K21.9 Gastro-esophageal reflux disease without esophagitis; Z88.6 Allergy status to analgesic agent; I49.1 Atrial premature depolarization; I10 Essential (primary) hypertension; I65.21 Occlusion and stenosis of right carotid artery